=== PATIENT | female | born 1930 | race Caucasian/White ===

== ENCOUNTER 2017-07-16 19:07 | Inpatient (IN) | payer MEDICARE ==
[2017-07-16 19:56] LABS: #Basophils 0.1 thou/uL (0.0-0.2); #Lymphocytes 1.4 thou/uL (1.20-3.40); #Monocytes 0.7 thou/uL (0.11-0.59); #Neutrophils 6.7 thou/uL (1.40-6.50); %Basophils 0.9 % (0.0-1.0); %Eosinophils 0.4 % (0.0-10.0); %Lymphocytes 15.8 % (21.0-51.0); %Monocytes 8.1 % (0.0-10.0); %Neutrophils 74.8 % (42.0-75.0); Hemoglobin 11.4 g/dL (12.0-16.0); Mean Corpuscular HGB CONC 32.8 g/dL (32.0-36.0); Mean Corpuscular Hemoglobin 26.8 pg (27.0-31.0); Mean Corpuscular Volume 81.7 fl (81.0-99.0); Mean Platelet Volume 7.2 fL (7.4-10.4); Platelet Count 401 thou/uL (130-400); RBC Distribution Width 14.6 % (11.5-14.5); Red Blood Cell (RBC) Count 4.25 mill/uL (4.20-5.40)
[2017-07-16 20:03] LABS: INR-International Normal Ratio 1.4; PTT 26.9 SEC (22.9-36.1); Prothrombin Time 17.5 SEC (12.0-14.7)
[2017-07-16 20:18] LABS: ALT (SGPT) 13 U/L (8-55); AST (SGOT) 31 U/L (5-34); Albumin 3.3 g/dL (3.4-4.8); Alkaline Phosphatase 80 U/L (40-150); Anion Gap 14 mmol/L (10-20); BUN (Urea Nitrogen) 30 mg/dL (9.8-20.1); Bilirubin, Total 0.4 mg/dL (0.2-1.2); CK (CPK) 120 U/L (29-168); Calc. Creatinine Clearance 0 mL/min (70-130); Calcium 8.5 mg/dL (7.8-10.44); Carbon Dioxide 17 mmol/L (23-31); Chloride 100 mmol/L (98-107); Estimated GFR-MDRD 49; Globulin 4.1 g/dL (2.4-3.5); Glucose 110 mg/dL (83-110); Protein, Total 7.4 g/dL (6.0-8.3); Sodium 127 mmol/L (136-145)
[2017-07-16 20:22] LABS: CKMB 5.1 ng/mL (0-6.6); Troponin I 0.014 ng/mL (< 0.028)
--- NOTE | 2017-07-16 20:42 | RAD ---
PORTABLE CHEST: 07/16/17 HISTORY: Chest pain. New onset atrial fibrillation. Heart size is enlarged with atherosclerotic changes of the aorta. Lungs show some subsegmental atelec tatic changes in the basis. No focal infiltrates. IMPRESSION: Cardiomegaly with subsegmental atelectatic change in the lung bases. POS: GUNNER
[2017-07-16] MEDS ORDERED: Diltiazem HCl SR 60 mg Capsule PO SCH (21:00)
[2017-07-16] MEDS ORDERED: Enoxaparin Sodium 100 MG/ML SYRINGE ONE (21:10)
[2017-07-16] MEDS ORDERED: Diltiazem HCl 125 MG, Admixture Fee 1 EACH in Sodium Chloride 0.9% 100 ML IVPB SCH (21:45)
[2017-07-16 21:49] LABS: Magnesium 1.9 mg/dL (1.6-2.6); Phosphorus 3.5 mg/dL (2.3-4.7)
[2017-07-16] MEDS ORDERED: Furosemide 40 MG/4 ML VIAL ONE (22:03)
[2017-07-16 23:31] LABS: Troponin I 0.019 ng/mL (< 0.028)
[2017-07-17] MEDS ORDERED: Calcium Carbonate 500 MG ChewTAB PO PRN (01:56)
[2017-07-17] MEDS ORDERED: Nitroglycerin 0.4 MG TAB (25 Tab Bottle) PO PRN (01:56)
[2017-07-17] MEDS ORDERED: Milk Of Magnesia 30 ML UDCUP PO PRN (01:56)
[2017-07-17] MEDS ORDERED: Senokot 8.6 MG TAB PO PRN (01:56)
[2017-07-17] MEDS ORDERED: Acetaminophen 325 MG TAB PO PRN (01:56)
[2017-07-17] MEDS ORDERED: Bisacodyl 10 MG SUPP PR PRN (01:56)
[2017-07-17 02:04] LABS: Troponin I 0.032 ng/mL (< 0.028)
--- NOTE | 2017-07-17 02:51 | HP ---
DATE OF ADMISSION: 07/17/2017 Patient was seen and examined on 07/17/2017. PRIMARY CARE PHYSICIAN: Patient has not seen a physician for many years. CHIEF COMPLAINT: Palpitations and shortness of breath of four weeks' duration. HISTORY OF PRESENT ILLNESS: Patient is an 86-year-old female with hypertension and rheumatic fever a s a child presented to the emergency room with above complaints. Over the last 4 weeks or so, patient has gradual worsening shortness of breath along with bilateral l ower extremity leg swelling. Patient gets short of breath on mild exertion. The shortness of breath also gets worse on lying down. She denies recent immobilization, travel. She also had some cough, which was productive of clear whitish phlegm. She also has intermittent palpitations on and off over the last 3-4 weeks. She denies lightheadedness, chest pain, or syncope. No fever or chills reporte d. PAST MEDICAL HISTORY: 1. Rheumatic fever as a child. 2. Degenerative joint disease on daily Advil. 3. Hypertension currently not on any medications. PAST SURGICAL HISTORY: 1. Laparoscopic cholecystectomy. 2. D&C. 3. EGD. 4. Colonoscopy. ALLERGIES: Patient is allergic to ASPIRIN, DARVOCET, and IODINE. CURRENT HOME MEDICATIONS: Advil as needed. FAMILY HISTORY: Brother with gastric cancer. SOCIAL HISTORY: She currently lives at home with her family. Her grandson is the DPOA. She is FULL CODE. REVIEW OF SYSTEMS: The following complete review of systems was negative, unless otherwise mentioned in the HPI or below: Constitutional: Weight loss or gain, ability to conduct usual activities. Sk in: Rash, itching. Eyes: Double vision, pain. ENT/Mouth: Nose bleeding, neck stiffness, pain, te nderness. Cardiovascular: Palpitations, dyspnea on exertion, orthopnea. Respiratory: Shortness of breath, wheezing, cough, hemoptysis, fever, or night sweats. Gastrointestinal: Poor appetite, abdo meme pain, heartburn, nausea, vomiting, constipation, or diarrhea. Genitourinary: Urgency, frequen cy, dysuria, nocturia. Musculoskeletal: Pain, swelling. Neurologic/Psychiatric: Anxiety, depressi on. Allergy/Immunologic: Skin rash, bleeding tendency. PHYSICAL EXAMINATION: VITAL SIGNS: In the emergency room showed temperature 97.6, respirations 24, pulse rate of 104 with blood pressure 140/112 with O2 saturation 98% on room air. GENERAL: An 86-year-old female in mild respiratory distress, able to complete short phrases. HEENT: Atraumatic, normocephalic. Sclerae anicteric. Moist mucous membranes. No oral lesion. NECK: Supple. JVD elevated. No carotid bruit. LUNGS: Showed bibasilar rales with scattered rhonchi. No wheezing. Lungs were symmetrical. There is mild accessory muscle use. HEART: S1, S2 present. Irregularly irregular, 2/6 systolic murmur over the mitral area. No heaves or pulsation. ABDOMEN: Soft, nontender, bowel sounds present. EXTREMITIES: 3 to 4+ edema in bilateral lower extremities up to the thighs. No calf tenderness. SKIN: Warm and dry. LYMPH NODES: No palpable lymph nodes in the neck. PERIPHERAL VASCULAR: Radial pulses palpable bilaterally. MUSCULOSKELETAL: No joint swelling or tenderness. NEUROLOGIC: Grossly nonfocal, moves all four extremities. PSYCHIATRIC: Alert, awake, oriented x3. Normal affect. LABORATORY DATA AND X-RAY FINDINGS: EKG by my review showed atrial fibrillation with frequent PVCs. BNP was 1307. Troponins were negative. Sodium 127 with potassium 4, BUN 30, creatinine 1.07. CBC showed WBC 9 with hemoglobin 11.4. INR 1.4. Chest x-ray by my review showed pulmonary vascular zhao estion with cardiomegaly. IMPRESSION: 1. New-onset congestive heart failure with atrial fibrillation with rapid ventricular response. Pat ient will be monitored on the telemetry unit. We will start her on Cardizem drip along with diuretic s. We will monitor electrolytes on a daily basis. We will get echocardiogram. Cardiology will be c onsulted. Fluid restriction. We will keep her n.p.o. past midnight. 2. Hypertensive urgency. Patient has hypertensive heart disease on EKG. We will start her on low-d ose ANY inhibitor with beta blockers. Await echocardiogram. 3. Obesity with a BMI 32.6. 4. Hyponatremia secondary to congestive heart failure. 5. Mild protein-calorie malnutrition. 6. Chronic anemia, suspected nutritional. 7. Degenerative joint disease on daily no nonsteroidal anti-inflammatory drugs. Patient was advised to discontinue nonsteroidal anti-inflammatory drugs while on anticoagulation. Please note that brianne ent has been started on Lovenox. 8. Plan of care was discussed with the patient in detail. She stated understanding. Patient will require 2-3 days for stabilization. Cardiac rehabilitation will be consulted.
[2017-07-17] MEDS: Furosemide 20 MG/2 ML VIAL SLOW IVP SCH ×2 (05:34→15:40)
[2017-07-17 06:07] LABS: #Basophils 0.1 thou/uL (0.0-0.2); #Eosinphils 0.1 thou/uL (0.0-0.7); #Lymphocytes 1.7 thou/uL (1.20-3.40); #Neutrophils 6.6 thou/uL (1.40-6.50); %Basophils 0.6 % (0.0-1.0); %Eosinophils 0.6 % (0.0-10.0); %Lymphocytes 18.3 % (21.0-51.0); %Monocytes 10.2 % (0.0-10.0); %Neutrophils 70.3 % (42.0-75.0); Hemoglobin 11.1 g/dL (12.0-16.0); Mean Corpuscular HGB CONC 31.6 g/dL (32.0-36.0); Mean Corpuscular Hemoglobin 25.9 pg (27.0-31.0); Mean Platelet Volume 7.2 fL (7.4-10.4); Platelet Count 399 thou/uL (130-400); RBC Distribution Width 14.6 % (11.5-14.5); Red Blood Cell (RBC) Count 4.27 mill/uL (4.20-5.40); White Blood Cell (WBC) Count 9.3 thou/uL (4.8-10.8)
[2017-07-17 06:30] LABS: Albumin 3.4 g/dL (3.4-4.8); Anion Gap 12 mmol/L (10-20); BUN (Urea Nitrogen) 30 mg/dL (9.8-20.1); BUN/Creatinine Ratio 25.64; Calc. Creatinine Clearance 46 mL/min (70-130); Calcium 8.7 mg/dL (7.8-10.44); Carbon Dioxide 20 mmol/L (23-31); Cardiac Risk 3.1 (Less than 4.5); Chloride 101 mmol/L (98-107); Cholesterol 99 mg/dl (< 200 Desired); Estimated GFR-MDRD 44; Glucose 90 mg/dL (83-110); HDL Cholesterol 32 mg/dL (>60 Neg Risk); LDL Cholesterol, Calculated 55 mg/dL; Magnesium 1.7 mg/dL (1.6-2.6); Phosphorus 3.4 mg/dL (2.3-4.7); Potassium 3.5 mmol/L (3.5-5.1); Sodium 129 mmol/L (136-145); Triglycerides 61 mg/dL (Less than 150)
[2017-07-17] MEDS ORDERED: Lisinopril 2.5 MG TAB PO SCH ×2 (09:00→14:31)
[2017-07-17] MEDS ORDERED: Prevnar 13-Val Conj/PF 0.5 ML SYRINGE IM ONE (09:00)
[2017-07-17] MEDS: Docusate 100 MG CAP PO SCH ×2 (14:40→21:21)
[2017-07-17] MEDS: Famotidine 20 MG TAB PO SCH (14:40)
[2017-07-17] MEDS: Carvedilol 3.125 MG TAB PO SCH ×2 (14:40→21:21)
[2017-07-17] MEDS ORDERED: Lisinopril 5 MG TAB PO SCH (14:45)
--- NOTE | 2017-07-17 15:36 | CON ---
DATE OF CONSULTATION: 07/17/2017 INDICATION FOR CONSULTATION: An 86-year-old female with congestive heart failure symptoms, palpitati ons, new-onset atrial fibrillation. HISTORY OF PRESENT ILLNESS: This unfortunate 86-year-old female who has not seen a physician since t and has for the last couple weeks, palpitations, shortness of breath. She has also had some diarrhea. She has had some flu-like symptoms. She presented to the hospital as she became signific antly more and more weak and she has also complained of some chest discomfort or chest heaviness that she described which has actually been an ongoing problem since she had her flu-like symptoms. She h as had no previous cardiac workup. She did say that she has had a history of rheumatic fever as a ch ild and has had some palpitations since she was a child. She does have a history of hypertension but has no other significant complaints or problems such as diabetes, hypercholesterolemia, tobacco abus e. At this time, she denies any chest pain. She does have some significant edema. Her shortness of breath has improved. PAST MEDICAL HISTORY: Significant for rheumatic fever. She had degenerative joint disease. She has had a cholecystectomy. She has had a D&C. SOCIAL HISTORY: She is a . She has no alcohol or tobacco abuse. FAMILY HISTORY: One brother with gastric cancer, but no early heart disease. Her only medication at home was Advil on a p.r.n. basis. ALLERGIES: She is allergic to DARVOCET, IODINE, and ASPIRIN. REVIEW OF SYSTEMS: She complains of shortness of breath, fatigue, weakness, diarrhea, and the lower extremity edema. Otherwise, her 12-point review of systems is relatively unremarkable. PHYSICAL EXAMINATION: GENERAL: Reveals an elderly female. VITAL SIGNS: Blood pressure is 102/62 and then increased up to 152/97, heart rate is in the 60s in t erms of atrial fibrillation. Heart rate is 97. She is afebrile with temperature is 97.3, O2 saturat ion 97%. HEENT: Shows head to be normocephalic and atraumatic. Carotid pulses are present without any bruits . CHEST: She has some decreased breath sounds, but I did not hear any significant rales, rhonchi or wh eezing. CARDIOVASCULAR: Exam reveals an irregular rhythm. She has systolic murmur of the aortic area. She also has systolic murmur at the apex. There were no heaves or thrills noted. ABDOMEN: Obese with no significant masses. She does have some mild tenderness over the entire abdom inal area. EXTREMITIES: Showed 2+ to 3+ lower extremity edema. Pedal pulses are present. NEUROLOGIC: The patient appears to be intact. She has apparently normal strength, normal tone. SKIN: Warm and dry. Her EKG shows atrial fibrillation. Chest x-ray shows cardiomegaly. LABORATORY DATA: Shows a creatinine of 1.17, hemoglobin 11.1. Sodium is 129. Troponin I was 0.014 increased up to 0.032. Her BNP was 1307. INR is 1.4. LDL was 55. IMPRESSION AND PLAN: 1. Elderly female with atrial fibrillation, uncertain of the onset of this atrial fibrillation, but certainly could have been present for quite some time. Echocardiogram is being done at the time of m y seeing the patient, this does show ejection fraction to be about 50-55%. She has left atrial dilat ation. She had moderate to severe mitral and tricuspid valve regurgitation as well as mild aortic an d pulmonary valve regurgitation. She has aortic valve sclerosis. She also has mitral annular calcif ication. There was also thickening of the mitral valve leaflets, but there was no significant gradie nt noted across the mitral valve. She did have some mild aortic valve stenosis. I cannot determine whether or not she has diastolic dysfunction due to the atrial fibrillation. We will continue to mon itor her. I would agree with diuresis at this time. Due to the atrial fibrillation, she will need t o undergo some type of stress testing to determine whether or not she has underlying coronary artery disease; however, she is 86 years old. She has been unhappy with medical treatment since her several years ago and she may refuse to undergo any further medical management once she becomes stable. 2. Edema. This appears to be cardiac related. Once when she is diuresed, then she actually tells t hat she has been drinking, she would like to drink a lot of water and this may be just due to volume overload. 3. Hyponatremia, which also may be due to volume overload. She has not been taking diuretics. 4. Obesity. This will be dealt with by the primary care service. 5. Anemia. This may be a delusional problem. Otherwise, she may need further evaluation, but she i s not severely anemic. Hemoglobin is 11.1. We will need to continue to monitor this lady and furthe r evaluation we will continue after she has had some diuresis. I would advise her to undergo stress testing to rule out evidence for underlying ischemia. If she is agreeable to proceed with this and i f it is positive, we would suggest that she undergo cardiac catheterization. We discussed with the p atient to whether or not she will agree to these procedures. If not, if she adamantly refuses to und ergo cardiac catheterization then I am not sure how we pursue a stress testing at this time, but woul d treat her medically. She needs to be on diuretics as well as beta blockers at a low dose if she be comes too bradycardic, which appears that she has had some episodes of bradycardia since being in the hospital. She may be a candidate for pacemaker insertion. I will need to discuss this with the lynnette granados in order to proceed. Again, she has not been very agreeable to followups, medical management or physicians and their suggestions in the past. I would be more than happy to continue to follow the patient with you.
[2017-07-17] MEDS: Enoxaparin Sodium 80 MG/0.8 ML SYRINGE SC SCH ×2 (15:41→21:33)
[2017-07-18] MEDS ORDERED: Melatonin 3 MG TAB PO SCH (02:45)
[2017-07-18] MEDS ORDERED: Ondansetron ODT 4 MG TAB PO SCH (04:45)
[2017-07-18 05:06] LABS: #Basophils 0.1 thou/uL (0.0-0.2); #Eosinphils 0.1 thou/uL (0.0-0.7); #Lymphocytes 1.3 thou/uL (1.20-3.40); #Monocytes 1.1 thou/uL (0.11-0.59); #Neutrophils 7.2 thou/uL (1.40-6.50); %Basophils 0.7 % (0.0-1.0); %Eosinophils 0.8 % (0.0-10.0); %Lymphocytes 13.6 % (21.0-51.0); %Monocytes 11.1 % (0.0-10.0); %Neutrophils 73.8 % (42.0-75.0); Hemoglobin 10.4 g/dL (12.0-16.0); Mean Corpuscular HGB CONC 32.6 g/dL (32.0-36.0); Mean Corpuscular Hemoglobin 26.5 pg (27.0-31.0); Mean Corpuscular Volume 81.1 fl (81.0-99.0); Mean Platelet Volume 6.9 fL (7.4-10.4); Platelet Count 350 thou/uL (130-400); RBC Distribution Width 14.4 % (11.5-14.5); Red Blood Cell (RBC) Count 3.94 mill/uL (4.20-5.40); White Blood Cell (WBC) Count 9.7 thou/uL (4.8-10.8)
[2017-07-18 05:27] LABS: Albumin 2.9 g/dL (3.4-4.8); Anion Gap 8 mmol/L (10-20); BUN (Urea Nitrogen) 27 mg/dL (9.8-20.1); BUN/Creatinine Ratio 22.88; Calc. Creatinine Clearance 46 mL/min (70-130); Calcium 7.9 mg/dL (7.8-10.44); Carbon Dioxide 26 mmol/L (23-31); Chloride 101 mmol/L (98-107); Estimated GFR-MDRD 43; Glucose 92 mg/dL (83-110); Magnesium 1.8 mg/dL (1.6-2.6); Phosphorus 3.8 mg/dL (2.3-4.7); Potassium 3.2 mmol/L (3.5-5.1); Sodium 132 mmol/L (136-145)
[2017-07-18 05:28] LABS: Troponin I 0.028 ng/mL (< 0.028)
[2017-07-18] MEDS: Furosemide 20 MG/2 ML VIAL SLOW IVP SCH (06:46)
[2017-07-18] MEDS: Famotidine 20 MG TAB PO SCH (09:19)
[2017-07-18] MEDS: Lisinopril 5 MG TAB PO SCH (09:20)
[2017-07-18] MEDS: Docusate 100 MG CAP PO SCH ×2 (09:20→21:12)
[2017-07-18] MEDS: Carvedilol 3.125 MG TAB PO SCH ×2 (09:21→21:12)
[2017-07-18] MEDS: Enoxaparin Sodium 80 MG/0.8 ML SYRINGE SC SCH ×2 (09:21→21:13)
--- NOTE | 2017-07-18 13:05 | PDOC.PN ---
- Subjective Encounter Start Date: 07/18/17 Encounter Start Time: 12:45 Subjective: f/u for acute diastolic CHF and ?new-onset A-fib. Feels better overall but -: weak and unsteady on feet. Diuresing with IV Lasix with 3lb weight loss. -: EF 55%. - Objective Resuscitation Status: Resuscitation Status FULL:Full Resuscitation MAR Reviewed: Yes Vital Signs & Weight: Vital Signs (12 hours) Temp Pulse Resp BP Pulse Ox 07/18/17 11:31 97.4 F L 52 L 18 116/72 95 07/18/17 09:20 59 L 07/18/17 08:11 97.7 F 59 L 18 135/111 H 94 L 07/18/17 08:00 97.7 F 59 L 18 94 L 07/18/17 03:09 97.6 F 68 20 119/66 96 Weight Admit Weight 189 lb 3.2 oz Weight 186 lb 2 oz I&O: 07/17/17 07/18/17 07/19/17 06:59 06:59 06:59 Intake Total 39.1 Balance 39.1 Result Diagrams: 07/18/17 04:34 07/18/17 04:34 Additional Labs: Laboratory Tests 07/16/17 07/16/17 07/17/17 19:48 19:50 01:30 Hgb 11.4 L Sodium 127 L 129 L Creatinine 1.07 1.17 H Phosphorus Magnesium Triglycerides 61 Cholesterol 99 LDL Cholesterol, Calc 55 HDL Cholesterol 32 07/17/17 07/18/17 01:30 04:34 Hgb 11.1 L Sodium Creatinine Phosphorus 3.8 Magnesium 1.8 Triglycerides Cholesterol LDL Cholesterol, Calc HDL Cholesterol Radiology Reviewed by me: Yes (2D echo - EF 55%, diast dysfn, mod MR/TR, mod ) EKG Reviewed by me: Yes (Tele - A-fib in 70's) Phys Exam - Physical Examination Constitutional: NAD HEENT: PERRLA, moist MMs, sclera anicteric, oral pharynx no lesions Neck: no nodes, no JVD, supple bibasilar crackles, diminished in bases Respiratory: no wheezing, no rhonchi S1, S2 Cardiovascular: no significant murmur, no rub, irregular Gastrointestinal: soft, non-tender, no distention, positive bowel sounds + LE edema bilat Musculoskeletal: pulses present Neurological: non-focal, normal sensation, moves all 4 limbs Psychiatric: normal affect, A&O x 3 Skin: no rash, normal turgor, cap refill <2 seconds Dx/Plan (1) Acute diastolic CHF (congestive heart failure) Code(s): I50.31 - ACUTE DIASTOLIC (CONGESTIVE) HEART FAILURE Status: Acute Comment: Change Lasix 40mg IV q12h, monitor I/O's and daily weight (2) Atrial fibrillation with rapid ventricular response Code(s): I48.91 - UNSPECIFIED ATRIAL FIBRILLATION Status: Acute Comment: ? subacute process, currently rate-controlled on Coreg, continue Lovenox (3) Hypertensive urgency Code(s): I16.0 - HYPERTENSIVE URGENCY Status: Acute Comment: Resolved, monitor BP trend (4) Hyponatremia Code(s): E87.1 - HYPO-OSMOLALITY AND HYPONATREMIA Status: Acute Comment: Improved, likely due to volume overload secondary to CHF, continue to monitor trend (5) CKD (chronic kidney disease), stage III Code(s): N18.3 - CHRONIC KIDNEY DISEASE, STAGE 3 (MODERATE) Status: Chronic Comment: Serial creatinine, avoid nephrotoxic meds and contrast exposure - Plan PT/OT, social work case manager, out of bed/ambulate Stable currently -: Increase Lasix 40mg IV q12h -: Continue Lovenox 80mg sc q12h -: Continue Lisinopril 5mg daily -: AM lab: BMP, CBC * ? Stress test vs Heart cath
--- NOTE | 2017-07-18 14:59 | PDOC.CTH ---
Cardiology Progress Note - Subjective The pt seen and examined. No overnight events. HR was down to 30s early AM on 07/18/17. The pt was asymptomatic during the episode. - Objective Vital Signs Temp Pulse Pulse Pulse Resp BP BP 07/18/17 14:16 64 56 L 127/64 135/72 07/18/17 11:31 97.4 F L 52 L 18 07/18/17 09:20 59 L 07/18/17 08:11 97.7 F 59 L 18 07/18/17 08:00 97.7 F 59 L 18 07/18/17 03:09 97.6 F 68 20 BP Pulse Ox Pulse Ox Pulse Ox 07/18/17 14:16 96 94 L 07/18/17 11:31 116/72 95 07/18/17 09:20 07/18/17 08:11 135/111 H 94 L 07/18/17 08:00 94 L 07/18/17 03:09 119/66 96 Admit Weight 189 lb 3.2 oz Weight 186 lb 2 oz 07/17/17 07/18/17 07/19/17 06:59 06:59 06:59 Intake Total 39.1 Balance 39.1 - Physical Examination General/Neuro: alert & oriented x3 Neck: no JVD present Lungs: other: (diminished at bases) Heart: other: (irregular) Abdomen: soft Extremities: other: (3+ pitting edema in BLE) - Telemetry Telemetry Rhythm: Afib 33-59 - Labs Result Diagrams: 07/18/17 04:34 07/18/17 04:34 Troponin/CKMB CK-MB (CK-2) 5.1 ng/mL (0-6.6) 07/16/17 19:48 Troponin I 0.028 ng/mL (< 0.028) 07/18/17 04:34 - Assessment/Plan 1. Acute on chronic diastolic HF - Cont. 3 + pitting BLE edema. Lasix IV was increased from 20mg BID to 40mg BID from today. On BBlocker, ANY, and Lasix. 2. Afib with RVR - HR has been down to 33 early this AM. The pt was asymptomatic. Discussed about possible PM with the pt. On Coreg and Lovenox BID. 3. HTN - stable; cont. to monitor 4. Mod - stable; cont. to monitor 5. CKD stage 3 - stable; cont. to monitor 6. anemia - slowly declined. cont. to monitor 7. Hyponatremia - improving; 8. Obese - MAR reviewed * Echo on 07/17/17 showed EF 50-55%, grade I diastolic dysfunction, mod dilated LA, mod SIOMARA, mod-severe MR, mild AR, mod , mod-severe TR, and mild FL. * Once the pt is diuresed, then plan for stress test if the pt agrees. Review of Systems - Review of Systems Constitutional: reports: no symptoms reported EENTM: reports: no symptoms reported Respiratory: reports: no symptoms reported Cardiac (ROS): reports: no symptoms reported ABD/GI: reports: no symptoms reported : reports: no symptoms reported
[2017-07-18] MEDS: Furosemide 40 MG/4 ML VIAL SLOW IVP SCH (15:25)
[2017-07-19 06:10] LABS: Anion Gap 9 mmol/L (10-20); BUN (Urea Nitrogen) 27 mg/dL (9.8-20.1); Calc. Creatinine Clearance 48 mL/min (70-130); Calcium 7.9 mg/dL (7.8-10.44); Carbon Dioxide 28 mmol/L (23-31); Chloride 102 mmol/L (98-107); Estimated GFR-MDRD 47; Glucose 88 mg/dL (83-110); Potassium 3.1 mmol/L (3.5-5.1)
[2017-07-19 06:13] LABS: Band 2 % (5-11); Hemoglobin 10.5 g/dL (12.0-16.0); Lymphocytes 26 % (21-51); MDiff Complete? YES; Mean Corpuscular HGB CONC 32.3 g/dL (32.0-36.0); Mean Corpuscular Hemoglobin 26.5 pg (27.0-31.0); Mean Corpuscular Volume 82.1 fl (81.0-99.0); Monocytes 12 % (0-10); Neutrophil 60 % (42-75); Platelet Count 326 thou/uL (130-400); RBC Distribution Width 14.4 % (11.5-14.5); Red Blood Cell (RBC) Count 3.95 mill/uL (4.20-5.40); White Blood Cell (WBC) Count 7.6 thou/uL (4.8-10.8)
[2017-07-19 06:21] LABS: Sodium 136 mmol/L (136-145)
[2017-07-19] MEDS: Furosemide 40 MG/4 ML VIAL SLOW IVP SCH ×2 (06:36→14:25)
[2017-07-19] MEDS: Potassium Chloride 20 MEQ TAB PO SCH ×3 (08:51→17:21)
[2017-07-19] MEDS: Famotidine 20 MG TAB PO SCH (08:52)
[2017-07-19] MEDS: Docusate 100 MG CAP PO SCH ×2 (08:52→21:33)
[2017-07-19] MEDS: Lisinopril 5 MG TAB PO SCH (08:52)
[2017-07-19] MEDS: Enoxaparin Sodium 80 MG/0.8 ML SYRINGE SC SCH ×2 (08:52→21:32)
[2017-07-19] MEDS: Carvedilol 3.125 MG TAB PO SCH ×2 (08:52→21:33)
[2017-07-19] MEDS ORDERED: Magnesium Chloride 64 MG TAB PO SCH (10:00)
--- NOTE | 2017-07-19 15:03 | PDOC.CTH ---
Cardiology Progress Note - Subjective Awake, lying in bed, watching tv. Denies acute complaints. No chest pain, shortness of breath, nausea or vomiting. Getting up frequently to urinate, down 12 pounds since admission. No overnight events. - Objective Vital Signs Temp Pulse Resp BP BP Pulse Ox 07/19/17 11:58 97.8 F 70 18 124/58 L 97 07/19/17 08:52 56 L 137/68 07/19/17 08:00 98.1 F 56 L 18 94 L 07/19/17 07:55 98.1 F 56 L 18 137/68 94 L 07/19/17 04:00 76 18 128/79 Admit Weight 189 lb 3.2 oz Weight 174 lb 3 oz 07/18/17 07/19/17 07/20/17 06:59 06:59 06:59 Intake Total 39.1 960 Output Total 300 Balance 39.1 660 - Physical Examination General/Neuro: alert & oriented x3, NAD Neck: no JVD present Lungs: CTA, unlabored respirations Heart: other: (Irregularly irregular) Abdomen: NT/ND Extremities: + edema B (Moderate BLE edema) - Labs Result Diagrams: 07/19/17 05:14 07/19/17 05:14 Troponin/CKMB CK-MB (CK-2) 5.1 ng/mL (0-6.6) 07/16/17 19:48 Troponin I 0.028 ng/mL (< 0.028) 07/18/17 04:34 - Assessment/Plan 1. Acute on chronic diastolic HF - EF 50-55%, grade I diastolic dysfunction, mod dilated LA, mod SIOMARA, moderate BLE edema. 12 pound weight loss since admission, volume status improving. Continue carvedilol, ACEi, furosemide as ordered. Will need stress test once euvolemic. 2. Afib with RVR-rate controlled, enoxaparin BID 3. HTN - stable, titrate antihypertensives as tolerated 4. Mod - stable 5. CKD stage 3 - stable 6. anemia -H&H stable 7. Hyponatremia -improved, Na+ 136 today
[2017-07-19] MEDS: Magnesium Chloride 64 MG TAB PO SCH (21:37)
--- NOTE | 2017-07-19 22:26 | PDOC.PN ---
- Subjective Encounter Start Date: 07/19/17 Encounter Start Time: 18:00 Patient seen and examined for New CHF/Afib with RVR. SOB/Leg swelling improving. No CP/SOB. No overnight events - Objective Resuscitation Status: Resuscitation Status FULL:Full Resuscitation MAR Reviewed: Yes Vital Signs & Weight: Vital Signs (12 hours) Temp Pulse Resp BP Pulse Ox 07/19/17 15:56 98 F 84 16 148/78 H 94 L 07/19/17 11:58 97.8 F 70 18 124/58 L 97 Weight Admit Weight 189 lb 3.2 oz Weight 174 lb 3 oz I&O: 07/18/17 07/19/17 07/20/17 06:59 06:59 06:59 Intake Total 39.1 960 580 Output Total 300 Balance 39.1 660 580 Result Diagrams: 07/19/17 05:14 07/20/17 04:42 EKG Reviewed by me: Yes (Tele Afib) Phys Exam - Physical Examination Constitutional: NAD Respiratory: no wheezing, no rhonchi Cardiovascular: no rub, irregular Gastrointestinal: soft, non-tender, positive bowel sounds Musculoskeletal: edema present (1+) Neurological: non-focal, moves all 4 limbs Psychiatric: A&O x 3 Dx/Plan (1) Acute diastolic CHF (congestive heart failure) Code(s): I50.31 - ACUTE DIASTOLIC (CONGESTIVE) HEART FAILURE Status: Acute Plan: Cont IV diuretics, ACEI, BB (2) Hypokalemia Code(s): E87.6 - HYPOKALEMIA Status: Acute Plan: Will replace (3) Atrial fibrillation with rapid ventricular response Code(s): I48.91 - UNSPECIFIED ATRIAL FIBRILLATION Status: Acute Plan: Rate controlled with beta blockers. Cont Anticoag. (4) Hypertensive urgency Code(s): I16.0 - HYPERTENSIVE URGENCY Status: Acute Plan: Cont current anti HTN (5) CKD (chronic kidney disease), stage III Code(s): N18.3 - CHRONIC KIDNEY DISEASE, STAGE 3 (MODERATE) Status: Chronic (6) Hyponatremia Code(s): E87.1 - HYPO-OSMOLALITY AND HYPONATREMIA Status: Resolved - Plan DVT proph w/lovenox, DVT proph w/SCDs Review of Systems - Review of Systems Respiratory: negative: Cough, Dry, Shortness of Breath, Hemoptysis, SOB with Excertion, Pleuritic Pain, Sputum, Wheezing Cardiovascular: negative: chest pain, palpitations, orthopnea, paroxysmal nocturnal dyspnea, edema, light headedness, other - Medications/Allergies Allergies/Adverse Reactions: Allergies Allergy/AdvReac Type Severity Reaction Status Date / Time aspirin Allergy Verified 07/17/17 00:39 barium iodide Allergy Verified 07/17/17 17:14 propoxyphene [From Darvon] Allergy Verified 07/17/17 00:39 Medications: Current Medications Acetaminophen (Tylenol) 650 mg PO Q4H PRN PRN Reason: Headache/Fever or Pain Bisacodyl (Dulcolax) 10 mg HI Q24H PRN PRN Reason: Constipation Calcium Carbonate (Tums) 1,000 mg PO Q4H PRN PRN Reason: Heartburn or Indigestion Carvedilol (Coreg) 3.125 mg PO BID COUNTS INCLUDE 234 BEDS AT THE [facility] Last Admin: 07/19/17 21:33 Dose: 3.125 mg Docusate Sodium (Colace) 100 mg PO BID COUNTS INCLUDE 234 BEDS AT THE [facility] Last Admin: 07/19/17 21:33 Dose: 100 mg Enoxaparin Sodium (Lovenox) 80 mg SC 0900,2100 COUNTS INCLUDE 234 BEDS AT THE [facility] Last Admin: 07/19/17 21:32 Dose: 80 mg Famotidine (Pepcid) 20 mg PO DAILY COUNTS INCLUDE 234 BEDS AT THE [facility] Last Admin: 07/19/17 08:52 Dose: 20 mg Furosemide (Lasix) 40 mg SLOW IVP 0600,1400 COUNTS INCLUDE 234 BEDS AT THE [facility] Last Admin: 07/19/17 14:25 Dose: 40 mg Lisinopril (Zestril) 5 mg PO DAILY COUNTS INCLUDE 234 BEDS AT THE [facility] Last Admin: 07/19/17 08:52 Dose: 5 mg Magnesium Chloride (Slow-Mag) 64 mg PO BID COUNTS INCLUDE 234 BEDS AT THE [facility] Last Admin: 07/19/17 21:37 Dose: 64 mg Magnesium Hydroxide (Milk Of Magnesium) 30 ml PO DAILYPRN PRN PRN Reason: Constipation Nitroglycerin (Nitrostat) 0.4 mg PO Q5MIN PRN PRN Reason: Chest Pain Senna (Senokot) 2 tab PO HSPRN PRN PRN Reason: Constipation Sodium Chloride (Flush - Normal Saline) 10 ml IVF PRN PRN PRN Reason: Saline Flush Last Admin: 07/19/17 21:38 Dose: 10 ml
[2017-07-20 06:08] LABS: Anion Gap 11 mmol/L (10-20); BUN (Urea Nitrogen) 28 mg/dL (9.8-20.1); Calc. Creatinine Clearance 48 mL/min (70-130); Calcium 8.3 mg/dL (7.8-10.44); Carbon Dioxide 30 mmol/L (23-31); Chloride 100 mmol/L (98-107); Estimated GFR-MDRD 50; Glucose 87 mg/dL (83-110); Magnesium 1.9 mg/dL (1.6-2.6); Potassium 3.8 mmol/L (3.5-5.1); Sodium 137 mmol/L (136-145)
[2017-07-20] MEDS: Furosemide 40 MG/4 ML VIAL SLOW IVP SCH ×2 (06:42→14:26)
[2017-07-20] MEDS: Carvedilol 3.125 MG TAB PO SCH ×2 (09:31→21:17)
[2017-07-20] MEDS: Famotidine 20 MG TAB PO SCH (09:31)
[2017-07-20] MEDS: Docusate 100 MG CAP PO SCH ×2 (09:31→09:33)
[2017-07-20] MEDS: Enoxaparin Sodium 80 MG/0.8 ML SYRINGE SC SCH ×2 (09:31→21:21)
[2017-07-20] MEDS: Lisinopril 5 MG TAB PO SCH (09:31)
[2017-07-20] MEDS: Magnesium Chloride 64 MG TAB PO SCH (09:54)
[2017-07-20 12:40] LABS: Bilirubin Negative (Negative); Blood, Urine Large (Negative); Clarity TURBID (Clear); Glucose, Urine (Dipstick) Negative (Negative); Leukocyte Large (Negative); Nitrite Negative (Negative); Protein, Urine (Dipstick) 30 mg/dL (Neg-Trace); Specific Gravity, Urine 1.009 (1.002-1.036); Urobilinogen 0.2 mg/dL (0.2-1.0)
[2017-07-20 12:42] LABS: Hyaline Casts/LPF 0-3 HYALINE CAST LPF (0-3 Hyaline); Pathc Cast-AUWi Flag 0.32 (0-2.49); Squamous Epithelial 0-3 HPF (0-3)
[2017-07-20 12:44] LABS: Yeast-AUWi Flag 283.4 (0-25.0)
[2017-07-20 12:50] LABS: Bacteria/HPF Rare-Few HPF (None Seen); RBC/HPF GREATER THAN 50-TNTC HPF (0-3); Yeast-All Forms None Seen HPF (None Seen)
--- NOTE | 2017-07-20 14:08 | PDOC.CTH ---
Cardiology Progress Note - Objective Vital Signs Temp Pulse Resp BP Pulse Ox 07/20/17 11:55 99.0 F 85 16 140/81 96 07/20/17 09:57 93 138/95 H 07/20/17 08:00 97.4 F L 93 14 07/20/17 07:46 97.4 F L 81 14 179/102 H 95 07/20/17 05:45 97.5 F L 89 18 120/85 94 L 07/20/17 05:32 93 L Admit Weight 189 lb 3.2 oz Weight 171 lb 1 oz 07/19/17 07/20/17 07/21/17 06:59 06:59 06:59 Intake Total 960 700 Output Total 300 100 520 Balance 660 600 -520 - Labs Result Diagrams: 07/19/17 05:14 07/20/17 04:42 Troponin/CKMB CK-MB (CK-2) 5.1 ng/mL (0-6.6) 07/16/17 19:48 Troponin I 0.028 ng/mL (< 0.028) 07/18/17 04:34 - Assessment/Plan 1. Acute on chronic diastolic HF - EF 50-55%, grade I diastolic dysfunction, mod dilated LA, mod SIOMARA, moderate BLE edema. 12 pound weight loss since admission, volume status improving. Continue carvedilol, ACEi, furosemide as ordered. Will need stress test once euvolemic. 2. Afib with RVR-rate controlled, enoxaparin BID 3. HTN - stable, titrate antihypertensives as tolerated 4. Mod - stable 5. CKD stage 3 - stable 6. anemia -H&H stable 7. Hyponatremia -improved, Na+ 136 today
--- NOTE | 2017-07-20 14:15 | PRG ---
DATE OF SERVICE: 07/20/2017 SUBJECTIVE: Ms. Mariee is feeling "washed out." No chest pain or pressure. OBJECTIVE: VITAL SIGNS: Blood pressure 140/80, pulse 85 and irregular. LUNGS: Clear. CARDIAC: Irregularly irregular. ABDOMEN: Soft, nontender. EXTREMITIES: No edema. ASSESSMENT: 1. Atrial fibrillation. 2. Mitral regurgitation. 3. Congestive heart failure. PLAN: Stress test has been ordered per Dr. Reina notes test discussed with the patient and family.
[2017-07-20] MEDS: cefTRIAXone\\ROCEPHIN 1 GM in Sodium Chloride 0.9% 100 ML IVPB SCH (14:27)
[2017-07-20] MEDS: Potassium Chloride 20 MEQ TAB PO SCH (17:45)
[2017-07-20] MEDS ORDERED: hydrALAZINE 20 MG/ML VIAL SLOW IVP SCH (21:15)
[2017-07-20] MEDS ORDERED: Ondansetron ODT 4 MG TAB SL SCH (21:15)
[2017-07-20] MEDS: Melatonin 3 MG TAB PO PRN (21:17)
--- NOTE | 2017-07-20 22:32 | PDOC.PN ---
- Subjective Encounter Start Date: 07/20/17 Encounter Start Time: 10:00 Patient seen and examined for CHF/Afib. SOB improving. Some urine discoloration. No overnight events - Objective Resuscitation Status: Resuscitation Status FULL:Full Resuscitation MAR Reviewed: Yes Vital Signs & Weight: Vital Signs (12 hours) Temp Pulse Resp BP Pulse Ox 07/20/17 21:19 65 07/20/17 16:00 97.5 F L 65 16 185/94 H 94 L 07/20/17 11:55 99.0 F 85 16 140/81 96 Weight Admit Weight 189 lb 3.2 oz Weight 171 lb 1 oz I&O: 07/19/17 07/20/17 07/21/17 06:59 06:59 06:59 Intake Total 960 700 980 Output Total 300 100 920 Balance 660 600 60 Result Diagrams: 07/19/17 05:14 07/20/17 04:42 EKG Reviewed by me: Yes (Tele Afib) Phys Exam - Physical Examination Constitutional: NAD Respiratory: no wheezing, no rhonchi Cardiovascular: no rub, irregular Gastrointestinal: soft, non-tender, positive bowel sounds Musculoskeletal: no edema Neurological: moves all 4 limbs Dx/Plan (1) Acute diastolic CHF (congestive heart failure) Code(s): I50.31 - ACUTE DIASTOLIC (CONGESTIVE) HEART FAILURE Status: Acute Comment: diuresing well (2) Hypokalemia Code(s): E87.6 - HYPOKALEMIA Status: Acute (3) Atrial fibrillation with rapid ventricular response Code(s): I48.91 - UNSPECIFIED ATRIAL FIBRILLATION Status: Acute Comment: Rate controlled. (4) Hypertensive urgency Code(s): I16.0 - HYPERTENSIVE URGENCY Status: Acute (5) CKD (chronic kidney disease), stage III Code(s): N18.3 - CHRONIC KIDNEY DISEASE, STAGE 3 (MODERATE) Status: Chronic (6) UTI (urinary tract infection) Status: Acute (7) Hyponatremia Code(s): E87.1 - HYPO-OSMOLALITY AND HYPONATREMIA Status: Resolved - Plan DVT proph w/lovenox Treat UTI -: Cont current meds as below -: Stress test -: Cont diuretics -: AM labs Review of Systems - Review of Systems Respiratory: negative: Cough, Dry, Shortness of Breath, Hemoptysis, SOB with Excertion, Pleuritic Pain, Sputum, Wheezing Cardiovascular: negative: chest pain, palpitations, orthopnea, paroxysmal nocturnal dyspnea, edema, light headedness, other - Medications/Allergies Allergies/Adverse Reactions: Allergies Allergy/AdvReac Type Severity Reaction Status Date / Time aspirin Allergy Verified 07/17/17 00:39 barium iodide Allergy Verified 07/17/17 17:14 propoxyphene [From Darvon] Allergy Verified 07/17/17 00:39 Medications: Current Medications Acetaminophen (Tylenol) 650 mg PO Q4H PRN PRN Reason: Headache/Fever or Pain Bisacodyl (Dulcolax) 10 mg [place] Q24H PRN PRN Reason: Constipation Calcium Carbonate (Tums) 1,000 mg PO Q4H PRN PRN Reason: Heartburn or Indigestion Last Admin: 07/20/17 06:37 Dose: 1,000 mg Carvedilol (Coreg) 3.125 mg PO BID [facility] Last Admin: 07/20/17 21:17 Dose: 3.125 mg Docusate Sodium (Colace) 100 mg PO BID [facility] Last Admin: 07/20/17 09:33 Dose: Not Given Enoxaparin Sodium (Lovenox) 80 mg SC 0900,2100 [facility] Last Admin: 07/20/17 21:21 Dose: 80 mg Famotidine (Pepcid) 20 mg PO DAILY [facility] Last Admin: 07/20/17 09:31 Dose: 20 mg Furosemide (Lasix) 40 mg PO DAILY-[facility] Hydralazine HCl (Apresoline) 10 mg SLOW IVP NOW [facility] Stop: 07/20/17 23:15 Last Admin: 07/20/17 21:19 Dose: 10 mg Ceftriaxone Sodium 1 gm/ (Sodium Chloride) 100 mls @ 200 mls/hr IVPB Q24HR [facility] Last Admin: 07/20/17 14:27 Dose: 100 mls Lisinopril (Zestril) 5 mg PO DAILY [facility] Last Admin: 07/20/17 09:31 Dose: 5 mg Magnesium Chloride (Slow-Mag) 64 mg PO BID [facility] Last Admin: 07/20/17 09:54 Dose: 64 mg Magnesium Hydroxide (Milk Of Magnesium) 30 ml PO DAILYPRN PRN PRN Reason: Constipation Melatonin (Melatonin) 3 mg PO HS PRN PRN Reason: Insomnia Last Admin: 07/20/17 21:17 Dose: 3 mg Nitroglycerin (Nitrostat) 0.4 mg PO Q5MIN PRN PRN Reason: Chest Pain Last Admin: 07/20/17 21:15 Dose: 0.4 mg Ondansetron HCl (Zofran Odt) 4 mg SL [facility] Stop: 07/20/17 23:15 Last Admin: 07/20/17 21:24 Dose: 4 mg Potassium Chloride (K-Dur) 20 meq PO BID-[facility] Last Admin: 07/20/17 17:45 Dose: 20 meq Senna (Senokot) 2 tab PO HSPRN PRN PRN Reason: Constipation Sodium Chloride (Flush - Normal Saline) 10 ml IVF PRN PRN PRN Reason: Saline Flush Last Admin: 07/20/17 06:42 Dose: 10 ml
[2017-07-21 05:31] LABS: #Basophils 0.1 thou/uL (0.0-0.2); #Monocytes 0.8 thou/uL (0.11-0.59); #Neutrophils 3.6 thou/uL (1.40-6.50); %Basophils 0.9 % (0.0-1.0); %Eosinophils 0.7 % (0.0-10.0); %Lymphocytes 30.6 % (21.0-51.0); %Monocytes 12.3 % (0.0-10.0); %Neutrophils 55.6 % (42.0-75.0); Hemoglobin 11.5 g/dL (12.0-16.0); Mean Corpuscular HGB CONC 32.7 g/dL (32.0-36.0); Mean Corpuscular Volume 82.4 fl (81.0-99.0); Mean Platelet Volume 6.9 fL (7.4-10.4); Platelet Count 353 thou/uL (130-400); RBC Distribution Width 14.3 % (11.5-14.5); Red Blood Cell (RBC) Count 4.28 mill/uL (4.20-5.40); White Blood Cell (WBC) Count 6.5 thou/uL (4.8-10.8)
[2017-07-21 05:50] LABS: Anion Gap 13 mmol/L (10-20); BUN (Urea Nitrogen) 25 mg/dL (9.8-20.1); Calc. Creatinine Clearance 52 mL/min (70-130); Calcium 8.8 mg/dL (7.8-10.44); Carbon Dioxide 28 mmol/L (23-31); Chloride 97 mmol/L (98-107); Estimated GFR-MDRD 56; Glucose 95 mg/dL (83-110); Magnesium 1.9 mg/dL (1.6-2.6); Potassium 3.5 mmol/L (3.5-5.1); Sodium 134 mmol/L (136-145)
[2017-07-21] MEDS: Magnesium Chloride 64 MG TAB PO SCH ×3 (08:00→20:56)
[2017-07-21] MEDS: Docusate 100 MG CAP PO SCH ×3 (08:00→20:56)
[2017-07-21] MEDS ORDERED: ADENOSINE 60 MG/20 ML VIAL ONE (11:07)
[2017-07-21] MEDS: Enoxaparin Sodium 80 MG/0.8 ML SYRINGE SC SCH (11:52)
[2017-07-21] MEDS: Famotidine 20 MG TAB PO SCH (12:40)
[2017-07-21] MEDS: Potassium Chloride 20 MEQ TAB PO SCH ×2 (12:40→19:13)
[2017-07-21] MEDS: Carvedilol 3.125 MG TAB PO SCH ×2 (12:41→20:56)
[2017-07-21] MEDS: Lisinopril 5 MG TAB PO SCH (12:41)
[2017-07-21] MEDS: Furosemide 40 MG TAB PO SCH (12:43)
[2017-07-21] MEDS: cefTRIAXone\\ROCEPHIN 1 GM in Sodium Chloride 0.9% 100 ML IVPB SCH (12:44)
--- NOTE | 2017-07-21 14:21 | NM ---
MYOCARDIAL PERFUSION EVALUATION: INDICATION: History of chest pain. RADIOPHARMACEUTICAL: 31 mCi technetium-99m sestamibi IV with stress and 27 mCi technetium-99m sestamibi with rest. COMPARISON: None. FINDINGS: When comparing the rest and stress images, no reversible myocardial perfusion defect is evident. Ther e is a mild size region of moderate reduced activity involving the mid to apical inferior and inferol ateral wall of the left ventricle, likely related to diaphragmatic attenuation. There is normal wall thickening seen within this region. There is left ventricular dilatation. There is diminished LVEF of 43%. IMPRESSION: Probably normal myocardial perfusion evaluation. 1. No definite scintigraphic evidence to suggest reversible myocardial ischemia. 2. Fixed defect involving the mid to apical inferior and inferolateral left ventricular wall, likely related to diaphragmatic attenuation. 3. Mild left ventricular dilatation with diminished LVEF estimated at 43%. POS: [facility]
--- NOTE | 2017-07-21 14:31 | ULT ---
RENAL ULTRASOUND: History: Hematuria. Comparison: None. FINDINGS: The right kidney measures 9.9 x 4.5 x 4.3 cm. There is a 3.8 cm cyst involving the inferior pole of t he right kidney. The left kidney measures 9.9 x 4.9 x 4.5 cm. There is a suspected parapelvic cyst involving the infer ior mid left kidney measuring 2.9 cm. Pre void bladder volume is 233 cc. There are bilateral ureteral jets. IMPRESSION: 1. No tacho hydronephrosis. 2. Right renal cyst. 3. Left peripelvic cyst. POS: [facility]
--- NOTE | 2017-07-21 14:32 | ULT ---
TRANSABDOMINAL EVALUATION OF THE PELVIS: INDICATION: History of vaginal bleeding. TECHNIQUE: Bass scale ultrasound images were submitted of the transabdominal pelvic ultrasound exam. The patien t refused a transvaginal exam. FINDINGS: Overlying bowel gas heavily limits image detail. The bladder was partially decompressed. The uterus and adnexa were not well seen. IMPRESSION: Limited examination of the pelvis via transabdominal approach due to overlying bowel gas and limited acoustic window from a decompressed bladder. The patient declined the transvaginal examination. POS: [facility]
--- NOTE | 2017-07-21 14:41 | PDOC.CTH ---
<Aundrea Waters - Last Filed: 07/21/17 14:42> Cardiology Progress Note - Subjective The pt seen and examined. No overnight events. No cardiac complaints. She feels generalized weakness. Family is at bedside and all questions were answered. - Objective Vital Signs Temp Pulse Resp BP Pulse Ox 07/21/17 12:39 96.3 F L 85 16 131/94 H 07/21/17 08:00 97.8 F 85 16 181/86 H 96 07/21/17 04:00 97.7 F 97 20 131/102 H 94 L Admit Weight 189 lb 3.2 oz Weight 165 lb 1 oz 07/20/17 07/21/17 07/22/17 06:59 06:59 06:59 Intake Total 700 1010 Output Total 100 1320 600 Balance 600 -310 -600 - Physical Examination General/Neuro: alert & oriented x3 Neck: no JVD present Lungs: CTA Heart: other: (irregular) Abdomen: soft Extremities: other: (1+ pitting BLE edema) - Telemetry Telemetry Rhythm: AFib 70-80s - Labs Result Diagrams: 07/21/17 05:19 07/21/17 05:19 Troponin/CKMB CK-MB (CK-2) 5.1 ng/mL (0-6.6) 07/16/17 19:48 Troponin I 0.028 ng/mL (< 0.028) 07/18/17 04:34 - Assessment/Plan 1. Acute on chronic diastolic HF - Stable with Lasix 40mg PO daily. Trace BLE edema. On BBlocker, ANY, and Lasix. 2. Afib with RVR - Hx of Bradycardia with HR down to 33 on 07/18/17. Stable HR with Afib With HR 70-80s since 07/19/17. Stress test was done today and the result is pending at this time. Lovenox is on hold due to S/p Acute genital bleeding. 3. HTN - stable; cont. to monitor 4. Mod - stable; cont. to monitor 5. CKD stage 3 - stable; cont. to monitor 6. anemia - Hgb 11.5 today which was 10.5 on 07/19/17. Cont. to monitor 7. Hyponatremia - improving; 8. Obese - MAR reviewed * Echo on 07/17/17 showed EF 50-55%, grade I diastolic dysfunction, mod dilated LA, mod SIOMARA, mod-severe MR, mild AR, mod , mod-severe TR, and mild [place]. * Stress test, Pelvic and renal U/S were done today and the result is pending at this time. Review of Systems - Review of Systems Constitutional: reports: see HPI EENTM: reports: no symptoms reported Respiratory: reports: no symptoms reported Cardiac (ROS): reports: no symptoms reported ABD/GI: reports: no symptoms reported : reports: no symptoms reported <Saadia Reina - Last Filed: 07/21/17 15:44> Cardiology Progress Note - Objective Vital Signs Temp Pulse Resp BP Pulse Ox 07/21/17 12:39 96.3 F L 85 16 131/94 H 07/21/17 08:00 97.8 F 85 16 181/86 H 96 07/21/17 04:00 97.7 F 97 20 131/102 H 94 L Admit Weight 189 lb 3.2 oz Weight 165 lb 1 oz 07/20/17 07/21/17 07/22/17 06:59 06:59 06:59 Intake Total 700 1010 Output Total 100 1320 600 Balance 600 -310 -600 - Labs Result Diagrams: 07/21/17 05:19 07/21/17 05:19 Troponin/CKMB CK-MB (CK-2) 5.1 ng/mL (0-6.6) 07/16/17 19:48 Troponin I 0.028 ng/mL (< 0.028) 07/18/17 04:34 - Assessment/Plan Pt. seen and eval. I agree with the a/P by the [facility] ATTENDANT. The stress test does not indicate reversible ischemia. Likely best to continue with ASA for Afib. if tolerated with the vaginal bleeding. She refused the vaginal ultrasound. The HR is under reasonable controlNo further significant braducardia and no tachycardia. No pacemaker indicated at this time.
[2017-07-21] MEDS: Melatonin 3 MG TAB PO PRN (20:56)
--- NOTE | 2017-07-21 22:11 | PDOC.PN ---
- Subjective Encounter Start Date: 07/21/17 Encounter Start Time: 18:00 Patient seen and examined for CHF/Afib. No new complaints. Overnight events noted. - Objective Resuscitation Status: Resuscitation Status FULL:Full Resuscitation MAR Reviewed: Yes Vital Signs & Weight: Vital Signs (12 hours) Temp Pulse Resp BP Pulse Ox 07/21/17 20:00 97.6 F 76 16 152/90 H 97 07/21/17 15:53 98.2 F 76 18 159/100 H 93 L 07/21/17 12:39 96.3 F L 85 16 131/94 H Weight Admit Weight 189 lb 3.2 oz Weight 165 lb 1 oz I&O: 07/20/17 07/21/17 07/22/17 06:59 06:59 06:59 Intake Total 700 1010 Output Total 100 1320 800 Balance 600 -310 -800 Result Diagrams: 07/22/17 05:25 07/22/17 05:25 EKG Reviewed by me: Yes (Tele Afib) Phys Exam - Physical Examination Constitutional: NAD Respiratory: no wheezing, no rhonchi Cardiovascular: no rub, irregular Gastrointestinal: soft, positive bowel sounds Musculoskeletal: edema present Neurological: moves all 4 limbs Dx/Plan (1) Acute diastolic CHF (congestive heart failure) Code(s): I50.31 - ACUTE DIASTOLIC (CONGESTIVE) HEART FAILURE Status: Acute Comment: diuresing well (2) Hypokalemia Code(s): E87.6 - HYPOKALEMIA Status: Acute (3) Atrial fibrillation with rapid ventricular response Code(s): I48.91 - UNSPECIFIED ATRIAL FIBRILLATION Status: Acute Comment: Rate controlled. (4) Hypertensive urgency Code(s): I16.0 - HYPERTENSIVE URGENCY Status: Acute (5) UTI (urinary tract infection) Status: Acute (6) Vagina bleeding Code(s): N93.9 - ABNORMAL UTERINE AND VAGINAL BLEEDING, UNSPECIFIED Status: Acute (7) CKD (chronic kidney disease), stage III Code(s): N18.3 - CHRONIC KIDNEY DISEASE, STAGE 3 (MODERATE) Status: Chronic - Plan continue antibiotics, DVT proph w/SCDs Complete Pelvic ultrasound in AM, Consult Database Report Writer in AM -: Lovenox dced due to Vaginal bleeding -: Cont Lasix PO -: Cont current meds as below -: Stress test neg Review of Systems - Review of Systems Respiratory: negative: Cough, Dry, Shortness of Breath, Hemoptysis, SOB with Excertion, Pleuritic Pain, Sputum, Wheezing Cardiovascular: negative: chest pain, palpitations, orthopnea, paroxysmal nocturnal dyspnea, edema, light headedness, other - Medications/Allergies Allergies/Adverse Reactions: Allergies Allergy/AdvReac Type Severity Reaction Status Date / Time aspirin Allergy Verified 07/17/17 00:39 barium iodide Allergy Verified 07/17/17 17:14 propoxyphene [From Darvon] Allergy Verified 07/17/17 00:39 Medications: Current Medications Acetaminophen (Tylenol) 650 mg PO Q4H PRN PRN Reason: Headache/Fever or Pain Bisacodyl (Dulcolax) 10 mg [place] Q24H PRN PRN Reason: Constipation Calcium Carbonate (Tums) 1,000 mg PO Q4H PRN PRN Reason: Heartburn or Indigestion Last Admin: 07/20/17 06:37 Dose: 1,000 mg Carvedilol (Coreg) 3.125 mg PO BID [facility] Last Admin: 07/21/17 20:56 Dose: 3.125 mg Docusate Sodium (Colace) 100 mg PO BID [facility] Last Admin: 07/21/17 20:56 Dose: 100 mg Famotidine (Pepcid) 20 mg PO DAILY [facility] Last Admin: 07/21/17 12:40 Dose: 20 mg Furosemide (Lasix) 40 mg PO DAILY-[facility] Last Admin: 07/21/17 12:43 Dose: 40 mg Ceftriaxone Sodium 1 gm/ (Sodium Chloride) 100 mls @ 200 mls/hr IVPB Q24HR [facility] Last Admin: 07/21/17 12:44 Dose: 100 mls Lisinopril (Zestril) 5 mg PO DAILY [facility] Last Admin: 07/21/17 12:41 Dose: 5 mg Magnesium Chloride (Slow-Mag) 64 mg PO BID [facility] Last Admin: 07/21/17 20:56 Dose: 64 mg Magnesium Hydroxide (Milk Of Magnesium) 30 ml PO DAILYPRN PRN PRN Reason: Constipation Melatonin (Melatonin) 3 mg PO HS PRN PRN Reason: Insomnia Last Admin: 07/21/17 20:56 Dose: 3 mg Nitroglycerin (Nitrostat) 0.4 mg PO Q5MIN PRN PRN Reason: Chest Pain Last Admin: 07/20/17 21:15 Dose: 0.4 mg Potassium Chloride (K-Dur) 20 meq PO BID-[facility] Last Admin: 07/21/17 19:13 Dose: 20 meq Senna (Senokot) 2 tab PO HSPRN PRN PRN Reason: Constipation Sodium Chloride (Flush - Normal Saline) 10 ml IVF PRN PRN PRN Reason: Saline Flush Last Admin: 07/21/17 12:44 Dose: 10 ml
[2017-07-22 05:59] LABS: Hemoglobin 11.2 g/dL (12.0-16.0)
[2017-07-22 06:20] LABS: Anion Gap 11 mmol/L (10-20); BUN (Urea Nitrogen) 25 mg/dL (9.8-20.1); Calc. Creatinine Clearance 52 mL/min (70-130); Calcium 8.6 mg/dL (7.8-10.44); Carbon Dioxide 29 mmol/L (23-31); Chloride 99 mmol/L (98-107); Estimated GFR-MDRD 58; Glucose 100 mg/dL (83-110); Magnesium 1.9 mg/dL (1.6-2.6); Potassium 4.1 mmol/L (3.5-5.1); Sodium 135 mmol/L (136-145)
[2017-07-22] MEDS: Furosemide 40 MG TAB PO SCH (06:43)
[2017-07-22] MEDS: Docusate 100 MG CAP PO SCH ×2 (08:22→20:39)
[2017-07-22] MEDS: Lisinopril 5 MG TAB PO SCH (08:22)
[2017-07-22] MEDS: Magnesium Chloride 64 MG TAB PO SCH ×2 (08:22→20:46)
[2017-07-22] MEDS: Famotidine 20 MG TAB PO SCH (08:22)
[2017-07-22] MEDS: Potassium Chloride 20 MEQ TAB PO SCH ×2 (08:22→16:19)
[2017-07-22] MEDS: Carvedilol 3.125 MG TAB PO SCH ×2 (08:22→20:39)
[2017-07-22] MEDS ORDERED: Amlodipine 5 MG TAB PO SCH ×2 (09:45→10:00)
[2017-07-22] MEDS ORDERED: Lisinopril 5 MG TAB PO SCH (10:17)
[2017-07-22] MEDS ORDERED: Lisinopril 10 MG TAB PO SCH (10:45)
--- NOTE | 2017-07-22 13:12 | PDOC.CTH ---
Cardiology Progress Note - Subjective The pt seen and examined. No overnight events. No cardiac complaints. However , she feels very fatigue after she had transvaginal exam. - Objective Vital Signs Temp Pulse Resp BP BP BP Pulse Ox 07/22/17 12:15 97.9 F 71 16 141/85 H 96 07/22/17 11:01 76 151/85 H 07/22/17 08:22 76 179/106 H 07/22/17 08:00 98 F 76 20 07/22/17 07:44 98.0 F 76 20 179/106 H 95 07/22/17 04:53 98.0 F 82 16 143/73 H 96 Admit Weight 189 lb 3.2 oz Weight 164 lb 4.8 oz 07/21/17 07/22/17 07/23/17 06:59 06:59 06:59 Intake Total 1010 200 Output Total 1320 800 600 Balance -310 600 600 - Physical Examination General/Neuro: alert & oriented x3 Neck: no JVD present Lungs: CTA Heart: other: (irregular) Abdomen: soft Extremities: other: (1+ pitting BLE edema) - Telemetry Telemetry Rhythm: Afib - Labs Result Diagrams: 07/22/17 05:25 07/22/17 05:25 Troponin/CKMB CK-MB (CK-2) 5.1 ng/mL (0-6.6) 07/16/17 19:48 Troponin I 0.028 ng/mL (< 0.028) 07/18/17 04:34 - Assessment/Plan 1. Acute on chronic diastolic HF - Stable with Lasix 40mg PO daily. Trace BLE edema. On BBlocker, ANY, and Lasix. 2. Afib with RVR - Hx of Bradycardia with HR down to 33 on 07/18/17. Stable HR with Afib With HR 70-80s since 07/19/17. Stress test on 07/21/17 showed normal. Will start ASA when she is stable and no longer bleeding. 3. HTN - stable; cont. to monitor 4. Mod - stable; cont. to monitor 5. CKD stage 3 - stable; cont. to monitor 6. anemia - stable; Cont. to monitor 7. Hyponatremia - improving; 8. Obese - 9. Acute Bleeding - stable; Hgb has been stable. S/p Pelvic and renal U/S on showed normal. She underwent transvaginal exam today and the result is pending at this moment. MAR reviewed * Echo on 07/17/17 showed EF 50-55%, grade I diastolic dysfunction, mod dilated LA, mod SIOMARA, mod-severe MR, mild AR, mod , mod-severe TR, and mild [place]. * No further significant bradycardia and no tachycardia since 07/19/17. No pacemaker indicated at this time. * Stress test on 07/21/17 showed normal * Pelvic and renal U/S were done today and the result is pending at this time. . Review of Systems - Review of Systems Constitutional: reports: no symptoms reported EENTM: reports: no symptoms reported Respiratory: reports: no symptoms reported Cardiac (ROS): reports: no symptoms reported ABD/GI: reports: no symptoms reported : reports: no symptoms reported Musculoskeletal: reports: see HPI
[2017-07-22] MEDS: cefTRIAXone\\ROCEPHIN 1 GM in Sodium Chloride 0.9% 100 ML IVPB SCH (13:43)
[2017-07-22 13:45] VITALS: BMI 28.2
--- NOTE | 2017-07-22 16:19 | PDOC.PN ---
- Subjective Encounter Start Date: 07/22/17 Encounter Start Time: 14:00 Patient seen and examined for CHF. Vaginal bleeding resolving. Feels weak. No new complaints. No overnight events - Objective Resuscitation Status: Resuscitation Status FULL:Full Resuscitation MAR Reviewed: Yes Vital Signs & Weight: Vital Signs (12 hours) Temp Pulse Resp BP BP BP Pulse Ox 07/22/17 12:15 97.9 F 71 16 141/85 H 96 07/22/17 11:01 76 151/85 H 07/22/17 08:22 76 179/106 H 07/22/17 08:00 98 F 76 20 07/22/17 07:44 98.0 F 76 20 179/106 H 95 07/22/17 04:53 98.0 F 82 16 143/73 H 96 Weight Admit Weight 189 lb 3.2 oz Weight 164 lb 4.8 oz I&O: 07/21/17 07/22/17 07/23/17 06:59 06:59 06:59 Intake Total 1010 200 Output Total 1320 800 600 Balance -310 -600 -600 Result Diagrams: 07/23/17 04:12 07/23/17 04:12 EKG Reviewed by me: Yes (Tele Afib) Phys Exam - Physical Examination Constitutional: NAD Respiratory: no wheezing, no rhonchi Cardiovascular: no rub, irregular Gastrointestinal: soft, non-tender, positive bowel sounds Musculoskeletal: edema present (improving) Neurological: moves all 4 limbs Psychiatric: A&O x 3 Dx/Plan (1) Acute diastolic CHF (congestive heart failure) Code(s): I50.31 - ACUTE DIASTOLIC (CONGESTIVE) HEART FAILURE Status: Acute Comment: diuresing well (2) Atrial fibrillation with rapid ventricular response Code(s): I48.91 - UNSPECIFIED ATRIAL FIBRILLATION Status: Acute Comment: Rate controlled. (3) Hypertensive urgency Code(s): I16.0 - HYPERTENSIVE URGENCY Status: Acute Comment: BP improving, Lisinopril dose increased. On Coreg and Amlodipine (4) UTI (urinary tract infection) Status: Acute Comment: on Ceftriaxone - Mixed culture (5) Vagina bleeding Code(s): N93.9 - ABNORMAL UTERINE AND VAGINAL BLEEDING, UNSPECIFIED Status: Acute Comment: improving. s/p Vaginal ultrasound today - report pending (6) CKD (chronic kidney disease), stage III Code(s): N18.3 - CHRONIC KIDNEY DISEASE, STAGE 3 (MODERATE) Status: Chronic - Plan DVT proph w/SCDs Cont Atbx, Change Potassium to daily -: Await Prepress Operator input -: Await Vag USG report -: DC planning in AM to SNF if ok with consultants -: AM labs, Will consider adding Plavix in AM if vaginal bleeding resolves. Review of Systems - Review of Systems Respiratory: negative: Cough, Dry, Shortness of Breath, Hemoptysis, SOB with Excertion, Pleuritic Pain, Sputum, Wheezing Cardiovascular: negative: chest pain, palpitations, orthopnea, paroxysmal nocturnal dyspnea, edema, light headedness, other - Medications/Allergies Allergies/Adverse Reactions: Allergies Allergy/AdvReac Type Severity Reaction Status Date / Time aspirin Allergy Verified 07/17/17 00:39 barium iodide Allergy Verified 07/17/17 17:14 propoxyphene [From Darvon] Allergy Verified 07/17/17 00:39 Medications: Current Medications Acetaminophen (Tylenol) 650 mg PO Q4H PRN PRN Reason: Headache/Fever or Pain Amlodipine Besylate (Norvasc) 5 mg PO DAILY [facility] Bisacodyl (Dulcolax) 10 mg [place] Q24H PRN PRN Reason: Constipation Calcium Carbonate (Tums) 1,000 mg PO Q4H PRN PRN Reason: Heartburn or Indigestion Last Admin: 07/20/17 06:37 Dose: 1,000 mg Carvedilol (Coreg) 3.125 mg PO BID [facility] Last Admin: 07/22/17 08:22 Dose: 3.125 mg Docusate Sodium (Colace) 100 mg PO BID [facility] Last Admin: 07/22/17 08:22 Dose: 100 mg Famotidine (Pepcid) 20 mg PO DAILY [facility] Last Admin: 07/22/17 08:22 Dose: 20 mg Furosemide (Lasix) 40 mg PO DAILY-[facility] Last Admin: 07/22/17 06:43 Dose: 40 mg Ceftriaxone Sodium 1 gm/ (Sodium Chloride) 100 mls @ 200 mls/hr IVPB Q24HR [facility] Last Admin: 07/22/17 13:43 Dose: 100 mls Lisinopril (Zestril) 10 mg PO DAILY [facility] Magnesium Chloride (Slow-Mag) 64 mg PO BID [facility] Last Admin: 07/22/17 08:22 Dose: 64 mg Magnesium Hydroxide (Milk Of Magnesium) 30 ml PO DAILYPRN PRN PRN Reason: Constipation Melatonin (Melatonin) 3 mg PO HS PRN PRN Reason: Insomnia Last Admin: 07/21/17 20:56 Dose: 3 mg Nitroglycerin (Nitrostat) 0.4 mg PO Q5MIN PRN PRN Reason: Chest Pain Last Admin: 07/20/17 21:15 Dose: 0.4 mg Potassium Chloride (K-Dur) 20 meq PO BID- [facility] Last Admin: 07/22/17 08:22 Dose: 20 meq Senna (Senokot) 2 tab PO HSPRN PRN PRN Reason: Constipation Sodium Chloride (Flush - Normal Saline) 10 ml IVF PRN PRN PRN Reason: Saline Flush Last Admin: 07/21/17 12:44 Dose: 10 ml
[2017-07-22] MEDS ORDERED: Misoprostol 100 MCG TAB VAG SCH ×2 (17:00→21:15)
[2017-07-22] MEDS: Melatonin 3 MG TAB PO PRN (20:57)
[2017-07-23 04:45] LABS: Hemoglobin 11.2 g/dL (12.0-16.0); Platelet Count 316 thou/uL (130-400)
[2017-07-23 04:57] LABS: Anion Gap 12 mmol/L (10-20); BUN (Urea Nitrogen) 26 mg/dL (9.8-20.1); Calc. Creatinine Clearance 53 mL/min (70-130); Calcium 8.6 mg/dL (7.8-10.44); Carbon Dioxide 27 mmol/L (23-31); Chloride 99 mmol/L (98-107); Estimated GFR-MDRD 59; Glucose 97 mg/dL (83-110); Potassium 4.5 mmol/L (3.5-5.1); Sodium 133 mmol/L (136-145)
--- NOTE | 2017-07-23 06:11 | CON ---
DATE OF CONSULTATION: 07/22/2017 REFERRING PHYSICIAN: Dr. Omar Allen. REASON FOR CONSULTATION: Postmenopausal bleeding. HISTORY OF PRESENT ILLNESS: The patient is an 86-year-old female, who was admitted on 07/17/2017 and diagnosed with new onset heart failure, hypertensive urgency, obesity, hyponatremia, atrial fibrilla tion and was treated accordingly. In the process of treatment, the patient was placed on Lovenox. S hortly after this, the patient reported that she was having some vaginal bleeding, which quickly led to discontinuation of her Lovenox and the bleeding has since stopped. [facility] was consulted for evalu ation of this postmenopausal bleeding. The patient reports that prior to initiation of Lovenox, the patient has had no vaginal discharge for as long as she can remember. No vaginal bleeding for as vesna g as she can remember since her perimenopausal days. We discussed the findings of this vaginal bleed ing and its potential etiologies including atrophy of the lining and the presence of anticoagulation, endometrial polyp or other benign tumor, and endometrial cancer. We discussed that in the presence of the overall setting and the new onset bleeding since anticoagulation was started and the discontin uation of bleeding when it was stopped that her bleeding is likely secondary to that; however, I had recommended further evaluation. The patient was given 2 options. Option one was to proceed with an endometrial biopsy to get a pathology diagnosis of the lining of her uterus and then the option two g iven that this is likely a benign condition iatrogenic due to the anticoagulation, that it would be r easonable to wait another month or so to allow the blood in the cavity to be reabsorbed or discharged and to repeat an ultrasound at that time if her endometrial lining is 4 mm or less and no other brit r abnormalities on the ultrasound, the patient would no longer have indication for a biopsy. If ther e continues to be fluid in the cavity or the lining is thicker than 4 mm, there would be indication f or a biopsy to be performed at that time. After thoroughly discussing her options, the patient has c hosen to proceed with a biopsy in this hospitalization. We did discuss the likely stenotic nature of her os. In anticipation of this, the patient has been pretreated with 25 mcg of Cytotec x2. The pa katrin has been counseled and consented for an endometrial biopsy attempt in the morning. We discusse d the risks include bleeding, infection, damage to surrounding organs, perforation of the uterus, dis comfort and pain and cramping. We also discussed the possibility that her cervical os is too stenoti c for us to successfully perform an endometrial biopsy without sedation. We also reviewed the role t sridhar the Cytotec could play and assisting us with this matter. Plan at this point in time is to dose her with misoprostol with the intention of having an endometrial biopsy performed tomorrow morning ar ound 7:00, which the patient has been consented for. PHYSICAL EXAMINATION: VITAL SIGNS: At the time of our evaluation included blood pressure of 147/73, temperature 98.0, puls e of 80, satting 93% on room air with a respiratory rate of 15. GENERAL: She appears to be in no acute distress. She is alert and oriented, cooperative and pleasan t to interact with. HEAD: Normocephalic, atraumatic. ABDOMEN: Soft and nontender. LABORATORY DATA: Her hemoglobin is 11.2, hematocrit 35.3, platelets of 353,000. ASSESSMENT AND PLAN: The patient is an 86-year-old female with postmenopausal bleeding, likely secon rekha to anticoagulation and an atrophic endometrial lining. However, to rule out any malignant proce ss, which is still possible, the patient has agreed to proceed with an attempted endometrial biopsy. The patient will be premedicated with 25 mcg of misoprostol PV x2 and we will attempt an endometrial biopsy in the morning around 7:00. If we are unsuccessful, the patient has opted to wait at that ti me for a repeat ultrasound in approximately 30 days. If the lining is 4 mm or less, there are no oth er abnormalities present in the lining that should be sufficient to not need to proceed with the biop sy. The patient and her daughter have agreed to have this performed in the outpatient setting with velvet gallegos up with an [employer]OMC[facility]. We will be following up with the endometrial biopsy attempt results.
[2017-07-23] MEDS ORDERED: Potassium Chloride 20 MEQ TAB PO SCH (08:00)
[2017-07-23] MEDS ORDERED: Clopidogrel Bisulfate 75 MG TAB PO SCH (09:00)
[2017-07-23] MEDS ORDERED: Lisinopril 5 MG TAB PO SCH (09:00)
[2017-07-23 09:04] LABS: INR-International Normal Ratio 1.2; PTT 27.1 SEC (22.9-36.1); Prothrombin Time 15.2 SEC (12.0-14.7)
--- NOTE | 2017-07-23 09:09 | PRG ---
DATE OF SERVICE: 07/23/2017 HISTORY OF PRESENT ILLNESS: The patient is an 86-year-old female who experienced some vaginal bleedi ng in the hospital after institution of Lovenox. We discussed the potential etiologies in addition t o the most likely cause and made a decision to attempt an endometrial biopsy with the understanding t hat her cervix may be stenotic and would be unsuccessful. The patient has been given 2 doses of 25 m cg of Cytotec PB last night and yesterday afternoon and this morning and was taken to the [facility] exam ro om with her nurse and daughter to attempt biopsy. PREPROCEDURAL DIAGNOSES: 1. New onset congestive heart failure. 2. Postmenopausal bleeding. PROCEDURE: Endometrial biopsy. SURGEON: Dr. Elieser Banegas COMPLICATIONS: None. PROCEDURE IN DETAIL: The patient was placed in dorsal lithotomy position in stirrups and then draped . A speculum was then used to identify the cervix. After prepping the cervix with Betadine a 2 mm p ipette was attempted to pass into the cervical os, but was unable to due to stenosis. A single-tooth tenaculum was then applied to the anterior lip of the cervix and a second attempt was made to pass t he pipette into the uterine cavity and was unsuccessful. At this point in time, given the stenosis o f the cervix and the overall situation, the decision was made to abort the procedure and moved to [facility] i[facility]. The tenaculum was removed and the cervix was noted to be hemostatic and the patient was then ta rehana back to her room with her nurse and daughter in stable condition. PLAN: At this point is to have a followup ultrasound in a month or two to verify the endometrial cav ity and lining. If this bleeding is just simply from the Lovenox, at that time, hopefully more easil y seen would be atrophy of the lining, which would be indication for no need for biopsy. If the lini ng demonstrates a thickness more than 4 mm, then a plan is going to be made to attempt a biopsy in a more controlled fashion with the patient under sedation or in the OR.
[2017-07-23] MEDS ORDERED: Aspirin 325 mg Enteric Coated Tablet PO SCH (09:30)
[2017-07-23] MEDS ORDERED: Aspirin 81 mg Enteric Coated Tablet PO SCH (09:30)
[2017-07-23] MEDS: Famotidine 20 MG TAB PO SCH (09:39)
[2017-07-23] MEDS: Magnesium Chloride 64 MG TAB PO SCH ×2 (09:39→22:38)
[2017-07-23 09:41] LABS: CKMB 1.1 ng/mL (0-6.6); Troponin I Less than 0.010 ng/mL (< 0.028)
[2017-07-23] MEDS: Amlodipine 5 MG TAB PO SCH (09:42)
[2017-07-23] MEDS: Furosemide 40 MG TAB PO SCH (09:42)
[2017-07-23] MEDS: Docusate 100 MG CAP PO SCH ×2 (09:42→22:36)
--- NOTE | 2017-07-23 09:42 | PDOC.EVN ---
Event Note - Event Note Event Note: Code green/stroke alert called - [facility] 4. CT brain negative. I d/w Dr Vega who recommended to hold Aspirin for now and get STAT MRI brain, MRA head/neck.
[2017-07-23] MEDS ORDERED: Carvedilol 6.25 MG TAB PO SCH (09:45)
[2017-07-23] MEDS: Carvedilol 3.125 MG TAB PO SCH (10:00)
--- NOTE | 2017-07-23 10:51 | CT ---
CT BRAIN WITHOUT CONTRAST: HISTORY: Stroke protocol, left-sided weakness. FINDINGS: There are changes of cortical atrophy and chronic small-vessel ischemic disease. The ventricular siz e is appropriate and the basilar cisterns are patent. No evidence of acute infarct, hemorrhage, midl ine shift, or abnormal extraaxial fluid collections is seen. There are vascular calcifications. The bony calvarium is intact. The visualized paranasal sinuses and mastoid air cells are well aerated. IMPRESSION: No CT evidence of acute intracranial process. Findings were discussed over the telephone with Dr. Omar Allen at 9:06 a.m. SERGEI CUNNINGHAM POS: [facility]
--- NOTE | 2017-07-23 12:13 | MRI ---
MR ANGIOGRAM OF CEREBRAL CIRCULATION: Technique: [id number] MR angiogram performed of the vertebral arteries. Indication: Stroke alert. Mental status change. FINDINGS: Visualized intracranial internal carotid arteries appear unremarkable. The middle cerebral arteries s hows luminal irregularity which may represent atherosclerotic change. There is mild luminal narrowing at the M1 segments, however, no evidence of focal occlusion. The A2 and A3 vessels appear symmetric. Anterior cerebral arteries are patent. There is evidence of narrowing of the proximal A2 segment on t he left. Basilar artery appears unremarkable. The posterior cerebrals appear unremarkable. IMPRESSION: No evidence of proximal occlusion of the major cerebral arteries. There is narrowing of the AP segmen t on the left and mild luminal narrowing of the M1 segments bilaterally suggesting atherosclerotic ch pérez. POS: [facility]
--- NOTE | 2017-07-23 12:46 | MRI ---
MRI BRAIN WITHOUT CONTRAST: HISTORY: Altered mental status. Left-sided weakness. CORRELATION: CT scan done earlier today (obtained at 9:00 a.m.). FINDINGS: There is a small focus of restricted diffusion in the left subcortical frontal lobe, which demonstrat es decreased signal on ADC maps. This is consistent with an acute infarct. There are a couple of ti ny foci of decreased signal intensity in the walter on the gradient echo sequences, consistent with hem osiderin, likely representing small cavernoma. There are changes of cortical atrophy and chronic small vessel ischemic disease. The ventricular siz e is appropriate, and the basilar cisterns are patent. No midline shift or abnormal extraaxial fluid collections are seen. IMPRESSION: 1. Small acute subcortical left frontal lobe infarction. 2. 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 3. Cortical atrophy. 4. Chronic small vessel ischemic disease. This study was interpreted in consultation with Dr. Emery Pena (neuroradiologist), who concurs. POS: [facility]
--- NOTE | 2017-07-23 12:48 | MRI ---
MR ANGIOGRAM OF NECK: Technique: [id number] imaging obtained of the extracranial carotid arteries. Indications: Stroke alert. Mental status change. FINDINGS: The origin of the arch vessels is not evaluated. The common carotid arteries appear unremarkable. There is mild luminal narrowing in the proximal left internal carotid artery at its origin which may represent some atherosclerotic change. This appears to produce mild to moderate stenosis which does n ot appear hemodynamically significant on the source axial images with degree of stenosis appearing le ss than 50% diameter on the source images. No evidence of significant disease in the right internal carotid artery and no focal stenosis seen in the proximal right ICA. The mid and distal ICAs are unremarkable bilaterally. The vertebral arteries are patent and appear unremarkable. IMPRESSION: 1. Mild luminal irregularity in the proximal left internal carotid artery at its origin. No evidence of hemodynamically significant stenosis identified. POS: [facility]
[2017-07-23] MEDS ORDERED: Aspirin 325 MG TAB PO SCH (13:30)
[2017-07-23] MEDS: cefTRIAXone\\ROCEPHIN 1 GM in Sodium Chloride 0.9% 100 ML IVPB SCH (13:35)
--- NOTE | 2017-07-23 17:15 | PDOC.CTH ---
Cardiology Progress Note - Objective Vital Signs Temp Pulse Resp BP BP Pulse Ox 07/23/17 15:28 98.8 F 79 16 124/74 94 L 07/23/17 12:26 158/102 H 07/23/17 12:00 97.5 F L 90 18 158/102 H 97 07/23/17 10:00 83 162/77 H 07/23/17 09:42 83 162/77 H 07/23/17 08:00 97.7 F 83 18 181/101 H 94 L 07/23/17 07:30 97.7 F 83 18 Admit Weight 189 lb 3.2 oz Weight 162 lb 14.4 oz 07/22/17 07/23/17 07/24/17 06:59 06:59 06:59 Intake Total 200 1340 395 Output Total 800 600 Balance -600 740 395 - Physical Examination General/Neuro: alert & oriented x3 Neck: no JVD present Lungs: CTA Heart: other: (irreg./irreg.) Abdomen: soft - Labs Result Diagrams: 07/23/17 04:12 07/23/17 04:12 Troponin/CKMB CK-MB (CK-2) 1.1 ng/mL (0-6.6) 07/23/17 08:44 Troponin I Less than 0.010 ng/mL (< 0.028) 07/23/17 08:44 - Assessment/Plan 1. Acute on chronic diastolic HF - Stable with Lasix 40mg PO daily. On BBlocker, ANY, and Lasix. 2. Afib with RVR - Hx of Bradycardia with HR down to 33 on 07/18/17. Stable HR with Afib With HR 70-80s since 07/19/17. Stress test on 07/21/17 showed normal. ASA started after small CVA earlier today.Watch for bleeding. 3. CVA, possible related to A-fib. 4. Mod - stable; cont. to monitor 5. CKD stage 3 - stable; cont. to monitor 6. anemia - stable; Cont. to monitor 7. Hyponatremia - improving; 8. Obese - 9. Acute Bleeding - stable; Hgb has been stable. S/p Pelvic and renal U/S on showed normal. She underwent transvaginal exam, unable to do biopsy. 10. HTN improved. MAR reviewed
--- NOTE | 2017-07-23 17:45 | PDOC.PN ---
- Subjective Encounter Start Date: 07/23/17 Encounter Start Time: 09:00 Patient seen and examined during the code green. No new complaints. No overnight events - Objective Resuscitation Status: Resuscitation Status FULL:Full Resuscitation MAR Reviewed: Yes Vital Signs & Weight: Vital Signs (12 hours) Temp Pulse Resp BP BP Pulse Ox 07/23/17 15:28 98.8 F 79 16 124/74 94 L 07/23/17 12:26 158/102 H 07/23/17 12:00 97.5 F L 90 18 158/102 H 97 07/23/17 10:00 83 162/77 H 07/23/17 09:42 83 162/77 H 07/23/17 08:00 97.7 F 83 18 181/101 H 94 L 07/23/17 07:30 97.7 F 83 18 Weight Admit Weight 189 lb 3.2 oz Weight 162 lb 14.4 oz I&O: 07/22/17 07/23/17 07/24/17 06:59 06:59 06:59 Intake Total 200 1340 395 Output Total 800 600 Balance -600 740 395 Result Diagrams: 07/23/17 04:12 07/23/17 04:12 EKG Reviewed by me: Yes (Tele Afib) Phys Exam - Physical Examination Constitutional: NAD Respiratory: no wheezing, no rhonchi Cardiovascular: no rub Gastrointestinal: soft, non-tender, positive bowel sounds Musculoskeletal: no edema Neurological: moves all 4 limbs Slurred speech, Confusion+ Psychiatric: A&O x 3 Dx/Plan (1) Acute CVA (cerebrovascular accident) Code(s): I63.9 - CEREBRAL INFARCTION, UNSPECIFIED Status: Acute Comment: suspected due to Afib (2) Acute diastolic CHF (congestive heart failure) Code(s): I50.31 - ACUTE DIASTOLIC (CONGESTIVE) HEART FAILURE Status: Acute Comment: diuresing well (3) Atrial fibrillation with rapid ventricular response Code(s): I48.91 - UNSPECIFIED ATRIAL FIBRILLATION Status: Acute Comment: Rate controlled, Anticoag on hold due to Vag bleed (4) Hypertensive urgency Code(s): I16.0 - HYPERTENSIVE URGENCY Status: Acute Comment: BP improving, Lisinopril dose increased. On Coreg and Amlodipine (5) UTI (urinary tract infection) Status: Acute Comment: on Ceftriaxone - Mixed culture (6) Vagina bleeding Code(s): N93.9 - ABNORMAL UTERINE AND VAGINAL BLEEDING, UNSPECIFIED Status: Acute Comment: No new episodes (7) CKD (chronic kidney disease), stage III Code(s): N18.3 - CHRONIC KIDNEY DISEASE, STAGE 3 (MODERATE) Status: Chronic - Plan DVT proph w/SCDs Started on ASA per Neuro - Not true allergy -: Cont current meds as below -: Neuro consult -: Cardio following -: Outpt Office Assistant follow up Review of Systems - Review of Systems Other: Cannot obtain due to confusion - Medications/Allergies Allergies/Adverse Reactions: Allergies Allergy/AdvReac Type Severity Reaction Status Date / Time aspirin Allergy Verified 07/17/17 00:39 barium iodide Allergy Verified 07/17/17 17:14 propoxyphene [From Darvon] Allergy Verified 07/17/17 00:39 Medications: Current Medications Acetaminophen (Tylenol) 650 mg PO Q4H PRN PRN Reason: Headache/Fever or Pain Last Admin: 07/23/17 04:42 Dose: 650 mg Amlodipine Besylate (Norvasc) 5 mg PO DAILY [facility] Last Admin: 07/23/17 09:42 Dose: 5 mg Aspirin (Aspirin) 325 mg PO DAILY [facility] Bisacodyl (Dulcolax) 10 mg MD Q24H PRN PRN Reason: Constipation Calcium Carbonate (Tums) 1,000 mg PO Q4H PRN PRN Reason: Heartburn or Indigestion Last Admin: 07/20/17 06:37 Dose: 1,000 mg Carvedilol (Coreg) 6.25 mg PO BID [facility] Docusate Sodium (Colace) 100 mg PO BID [facility] Last Admin: 07/23/17 09:42 Dose: 100 mg Famotidine (Pepcid) 20 mg PO DAILY [facility] Last Admin: 07/23/17 09:39 Dose: 20 mg Furosemide (Lasix) 40 mg PO DAILY-AC [facility] Last Admin: 07/23/17 09:42 Dose: 40 mg Ceftriaxone Sodium 1 gm/ (Sodium Chloride) 100 mls @ 200 mls/hr IVPB Q24HR [facility] Last Admin: 07/23/17 13:35 Dose: 100 mls Lisinopril (Zestril) 10 mg PO BID [facility] Magnesium Chloride (Slow-Mag) 64 mg PO BID [facility] Last Admin: 07/23/17 09:39 Dose: 64 mg Magnesium Hydroxide (Milk Of Magnesium) 30 ml PO DAILYPRN PRN PRN Reason: Constipation Melatonin (Melatonin) 3 mg PO HS PRN PRN Reason: Insomnia Last Admin: 07/22/17 20:57 Dose: 3 mg Nitroglycerin (Nitrostat) 0.4 mg PO Q5MIN PRN PRN Reason: Chest Pain Last Admin: 07/20/17 21:15 Dose: 0.4 mg Senna (Senokot) 2 tab PO HSPRN PRN PRN Reason: Constipation Sodium Chloride (Flush - Normal Saline) 10 ml IVF PRN PRN PRN Reason: Saline Flush Last Admin: 07/22/17 20:40 Dose: 10 ml
--- NOTE | 2017-07-23 20:09 | EKG ---
Test Reason : STAT Blood Pressure : / mmHG Vent. Rate : 076 BPM Atrial Rate : 097 BPM P-R Int : 000 ms QRS Dur : 118 ms QT Int : 420 ms P-R-T Axes : 000 -49 060 degrees QTc Int : 472 ms Atrial fibrillation Left anterior fascicular block Left ventricular hypertrophy with QRS widening and repolarization abnormality Abnormal ECG T wave inversion more evident in Inferior leads Inverted T waves have replaced nonspecific T wave abnormality in Lateral leads Confirmed by SAWYER BOOKER (2) on 07/23/2017 8:09:10 PM Referred By: AGATA Confirmed By:SAWYER BOOKER
--- NOTE | 2017-07-23 20:28 | EKG ---
Test Reason : Blood Pressure : / mmHG Vent. Rate : 093 BPM Atrial Rate : 120 BPM P-R Int : 000 ms QRS Dur : 114 ms QT Int : 398 ms P-R-T Axes : 000 -54 077 degrees QTc Int : 494 ms Atrial fibrillation Left anterior fascicular block Voltage criteria for left ventricular hypertrophy Nonspecific ST and T wave abnormality , probably digitalis effect Prolonged QT Abnormal ECG When compared with ECG of 20-JUL-2017 21:16, (Unconfirmed) Previous ECG has undetermined rhythm, needs review Nonspecific T wave abnormality has replaced inverted T waves in Lateral leads Confirmed by SAWYER BOOKER (2) on 07/23/2017 8:27:36 PM Referred By: AGATA Confirmed By:SAWYER BOOKER
[2017-07-23] MEDS: Carvedilol 6.25 MG TAB PO SCH (22:36)
[2017-07-23] MEDS: Lisinopril 10 MG TAB PO SCH (22:37)
--- NOTE | 2017-07-24 00:39 | CON ---
DATE OF CONSULTATION: 07/23/2017 REASON FOR CONSULTATION: Acute-onset aphasia, stroke alert initiated. REFERRING PHYSICIAN: Omar Allen MD HISTORY OF PRESENT ILLNESS: Ms. Mariee is a pleasant 86-year-old female who has been cons ulted for evaluation of acute onset of aphasia and left lower extremity weakness. Stroke alert was i nitiated. I had received a phone call from Dr. Allen regarding this patient, and we had discussed th e case over the phone. Apparently, the patient has been admitted to the hospital with new-onset atri al fibrillation with RVR. She was started on weight-based Lovenox for the atrial fibrillation; howev er, she had developed vaginal bleeding. Due to this reason on 07/21/2017, after the morning dose, th e Lovenox was discontinued. This morning, she had a sudden onset of word finding difficulties and ga rbled speech, which prompted us code green. The patient was also noted to have left lower extremity weakness. According to the nurse, the patient was seen normal 50 minutes prior to this episode. Her NIH stroke scale was noted to be 4 at the time of the code green. I did discuss the case with Dr. Halle rivas over the phone and had recommended to obtain MRI brain without contrast and MRA head and neck as she is allergic to IV contrast agent. Due to the recent episode of vaginal bleeding and due to the fact that she had received Lovenox less than 48 hours, she was not a candidate for IV TPA. Per nurse , the patient has noted improvement in her strength of left lower extremity; however, she continues t o have some difficulty with expressive aphasia. PAST MEDICAL HISTORY: Significant for hypertension, rheumatic fever as a child, degenerative joint d isease. PAST SURGICAL HISTORY: Significant for cholecystectomy and D&C procedure. CURRENT MEDICATIONS: Only Advil as needed. ALLERGIES: Significant for ASPIRIN, DARVOCET, and IODINE. FAMILY HISTORY: Significant for brother with gastric cancer. SOCIAL HISTORY: She does not smoke cigarettes, drink alcohol, or use illicit drugs. 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 REVIEW OF SYSTEMS: As mentioned above in HPI, otherwise negative. PHYSICAL EXAMINATION: VITAL SIGNS: Blood pressure of 124/74, pulse of 79, temperature of 98.8, respirations of 16, O2 sats of 94% on room air. GENERAL: Well-developed, well-nourished female in no apparent distress. RESPIRATORY: Clear to auscultation bilaterally. CARDIOVASCULAR: Regular rate and rhythm. NEUROLOGIC: Mental status: The patient is awake, alert, oriented x2. Speech and language: Mild ex pressive aphasia noted. Cranial nerves: Pupils are 3 mm and reactive. Visual dickens are full to th reat. External ocular muscles are intact. No nystagmus is noted. Face is symmetric. Tongue and uv lani are midline. Motor exam showed normal tone and bulk with 5/5 strength in both upper extremities as well in both lower extremities. There is no pronator drift noted. Sensory: Sensation is intact and symmetric. Deep tendon reflexes, 2+ reflexes in both upper and lower extremities. Babinski, justin ntar responses flexion bilaterally. Coordination intact to [id number] on both sides. LABORATORY DATA: Reviewed, which included CBC, BMP, lipid profile, which is significant for hemoglob in 11.5, hematocrit of 35.2, sodium of 133, BUN of 26, otherwise unremarkable. IMAGING STUDIES: MRI brain without contrast was reviewed, which showed small acute left frontal subc ortical infarct, small cavernoma in the walter, otherwise unremarkable. MRA head and neck were reviewe d, which showed no significant intracranial or extracranial vascular abnormality. IMPRESSION: 1. 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 2. Expressive aphasia due to acute left middle cerebral artery distribution ischemic infarct. 3. Atrial fibrillation. ASSESSMENT AND PLAN: Ms. Mariee is a pleasant 86-year-old female, who presented initially with the new-onset atrial fibrillation, had developed vaginal bleeding secondary to weight-based [place] enox. This was discontinued less than 48 hours ago, after which she had sudden onset of expressive a phasia. She was not a candidate for IV TPA due to recent vaginal bleeding as well as recent use of a nticoagulation therapy that increases the risk for TPA bleeding risk. I had obtained MRA head and ne ck to evaluate for large-vessel occlusion, which was negative and thus she was not a candidate for an y interventional procedure. At this time, I would recommend continuing her on aspirin 325 mg daily f or secondary stroke prevention. In my opinion, given her atrial fibrillation, she should be on Eliqu is or Xarelto for secondary stroke prevention. Per nurse, family is debating whether to start on ant icoagulation therapy as she had had history of GI bleed in the past from aspirin itself. Continue PT , OT, speech therapy. Continue supportive care. Thank you for consultation.
[2017-07-24 05:58] LABS: #Lymphocytes 2.2 thou/uL (1.20-3.40); #Monocytes 0.8 thou/uL (0.11-0.59); #Neutrophils 5.8 thou/uL (1.40-6.50); %Basophils 0.4 % (0.0-1.0); %Eosinophils 0.5 % (0.0-10.0); %Lymphocytes 24.7 % (21.0-51.0); %Monocytes 8.7 % (0.0-10.0); %Neutrophils 65.6 % (42.0-75.0); Hemoglobin 11.7 g/dL (12.0-16.0); Mean Corpuscular HGB CONC 31.6 g/dL (32.0-36.0); Mean Corpuscular Hemoglobin 25.8 pg (27.0-31.0); Mean Corpuscular Volume 81.4 fl (81.0-99.0); Mean Platelet Volume 7.2 fL (7.4-10.4); Platelet Count 322 thou/uL (130-400); RBC Distribution Width 14.5 % (11.5-14.5); Red Blood Cell (RBC) Count 4.52 mill/uL (4.20-5.40); White Blood Cell (WBC) Count 8.8 thou/uL (4.8-10.8)
[2017-07-24 06:09] LABS: Anion Gap 11 mmol/L (10-20); BUN (Urea Nitrogen) 24 mg/dL (9.8-20.1); Calc. Creatinine Clearance 57 mL/min (70-130); Calcium 8.5 mg/dL (7.8-10.44); Carbon Dioxide 26 mmol/L (23-31); Chloride 98 mmol/L (98-107); Estimated GFR-MDRD 64; Glucose 101 mg/dL (83-110); Potassium 4.5 mmol/L (3.5-5.1); Sodium 130 mmol/L (136-145)
[2017-07-24] MEDS: Furosemide 40 MG TAB PO SCH (08:43)
[2017-07-24] MEDS: Carvedilol 6.25 MG TAB PO SCH ×2 (08:43→21:38)
[2017-07-24] MEDS: Famotidine 20 MG TAB PO SCH (08:43)
[2017-07-24] MEDS: Docusate 100 MG CAP PO SCH ×2 (08:43→21:38)
[2017-07-24] MEDS: Amlodipine 5 MG TAB PO SCH (08:43)
[2017-07-24] MEDS: Lisinopril 10 MG TAB PO SCH ×2 (08:43→21:39)
[2017-07-24] MEDS: Magnesium Chloride 64 MG TAB PO SCH ×2 (08:44→21:38)
[2017-07-24] MEDS ORDERED: Aspirin 325 MG TAB PO SCH (09:00)
[2017-07-24] MEDS ORDERED: Clopidogrel Bisulfate 75 MG TAB PO SCH (09:00)
[2017-07-24] MEDS ORDERED: Heparin 5,000 UNITS/ML VIAL SC SCH (09:00)
[2017-07-24] MEDS ORDERED: Aspirin 325 mg Enteric Coated Tablet PO SCH (09:00)
--- NOTE | 2017-07-24 09:21 | PDOC.CTH ---
Cardiology Progress Note - Subjective The pt seen and examined. No overnight events. No cardiac complaints. She is resting well. Per nurse, she follows command and eating well; however, unable to answer questions. - Objective Vital Signs Temp Pulse Resp BP BP Pulse Ox 07/24/17 08:43 85 168/102 H 07/24/17 07:59 98.6 F 85 20 168/102 H 96 07/24/17 03:38 99.4 F 96 20 138/85 97 07/24/17 00:00 98.3 F 78 16 144/77 H 96 07/23/17 22:37 141/93 H 07/23/17 22:36 143/93 H Admit Weight 189 lb 3.2 oz Weight 164 lb 8 oz 07/23/17 07/24/17 07/25/17 06:59 06:59 06:59 Intake Total 1340 995 240 Output Total 600 Balance 740 995 240 - Physical Examination Lungs: CTA Heart: other: (irregular) Abdomen: soft Extremities: other: (No edema) - Telemetry Telemetry Rhythm: AFib 80s - Labs Result Diagrams: 07/24/17 05:41 07/24/17 05:41 Troponin/CKMB CK-MB (CK-2) 1.1 ng/mL (0-6.6) 07/23/17 08:44 Troponin I Less than 0.010 ng/mL (< 0.028) 07/23/17 08:44 - Assessment/Plan 1. CVA with Lt side weakness - possible related to A-fib. ASA 325mg PO daily was resumed from yesterday. Per nurse, the pt have express aphasia, but mild Lt side weakness with very mild balance abnormality. Stop ASA and start Elqiuis 5mg BID from tomorrow. 2. Acute on chronic diastolic HF - Stable with Lasix 40mg PO daily. On BBlocker , ANY, and Lasix. 3. Afib with RVR - Hx of Bradycardia with HR down to 33 on 07/18/17. Stable HR with Afib With HR 70-80s since 07/19/17. Stress test on 07/21/17 showed normal. ASA started after CVA earlier yesterday. Stop ASA and start Elqiuis 5mg BID from tomorrow. Watch for bleeding. 4. Mod - stable; cont. to monitor 5. CKD stage 3 - stable; cont. to monitor 6. anemia - stable; Cont. to monitor 7. HTN - stable 8. Obese - 9. Acute Bleeding - stable; Hgb has been stable. S/p Pelvic and renal U/S on showed normal. She underwent transvaginal exam, unable to do biopsy. Plan to have another biopsy within 1 month as outpt. 10. Hyponatremia - Start fluid restriction 1200ml/day MAR reviewed Review of Systems - Review of Systems Constitutional: reports: see HPI EENTM: reports: see HPI Respiratory: reports: see HPI Cardiac (ROS): reports: see HPI ABD/GI: reports: see HPI : reports: see HPI
[2017-07-24] MEDS: cefTRIAXone\\ROCEPHIN 1 GM in Sodium Chloride 0.9% 100 ML IVPB SCH (12:20)
--- NOTE | 2017-07-24 18:59 | PDOC.PN ---
- Subjective Encounter Start Date: 07/24/17 Encounter Start Time: 19:00 Patient seen and examined for Acute CVA/Afib/CHF. No new focal deficits. No CP/ SOB. No overnight events - Objective Resuscitation Status: Resuscitation Status FULL:Full Resuscitation MAR Reviewed: Yes Vital Signs & Weight: Vital Signs (12 hours) Temp Pulse Pulse Pulse Pulse Resp BP 07/24/17 15:38 98.6 F 89 20 07/24/17 11:48 99.3 F 70 16 07/24/17 10:43 69 60 07/24/17 10:04 82 90 07/24/17 08:43 85 168/102 H 07/24/17 08:04 70 86 58 L 07/24/17 08:00 98.6 F 85 20 07/24/17 07:59 98.6 F 85 20 BP BP BP BP Pulse Ox 07/24/17 15:38 127/59 L 96 07/24/17 11:48 144/84 H 96 07/24/17 10:43 143/78 H 131/73 07/24/17 10:04 145/88 H 127/81 07/24/17 08:43 07/24/17 08:04 145/85 H 175/82 H 133/83 07/24/17 08:00 07/24/17 07:59 168/102 H 96 Weight Admit Weight 189 lb 3.2 oz Weight 164 lb 8 oz I&O: 07/23/17 07/24/17 07/25/17 06:59 06:59 06:59 Intake Total 1340 995 480 Output Total 600 Balance 740 995 480 Result Diagrams: 07/24/17 05:41 07/24/17 05:41 Radiology Reviewed by me: Yes (MRI - Acute left frontal lobe CVA) EKG Reviewed by me: Yes (Tele Afib) Phys Exam - Physical Examination Constitutional: NAD Some expressive aphasia Neck: no JVD, supple Respiratory: no wheezing, no rhonchi Symmetrical, Scat rales at bases Cardiovascular: no rub, irregular no heaves/pulsations Gastrointestinal: soft, non-tender, no distention, positive bowel sounds Musculoskeletal: no edema, pulses present Neurological: moves all 4 limbs No new focal deficits. Psychiatric: normal affect, A&O x 3 Dx/Plan (1) Acute CVA (cerebrovascular accident) Code(s): I63.9 - CEREBRAL INFARCTION, UNSPECIFIED Status: Acute Comment: suspected due to Afib (2) Acute diastolic CHF (congestive heart failure) Code(s): I50.31 - ACUTE DIASTOLIC (CONGESTIVE) HEART FAILURE Status: Acute Comment: diuresing well (3) Atrial fibrillation with rapid ventricular response Code(s): I48.91 - UNSPECIFIED ATRIAL FIBRILLATION Status: Acute Comment: Rate controlled on Coreg (4) Hypertensive urgency Code(s): I16.0 - HYPERTENSIVE URGENCY Status: Acute Comment: On Lisinopril, Coreg and Amlodipine (5) UTI (urinary tract infection) Status: Acute Comment: on Ceftriaxone - Mixed culture (6) CKD (chronic kidney disease), stage III Code(s): N18.3 - CHRONIC KIDNEY DISEASE, STAGE 3 (MODERATE) Status: Chronic (7) Swallowing dysfunction Code(s): R13.10 - DYSPHAGIA, UNSPECIFIED Status: Acute Comment: on modified diet (8) Vagina bleeding Code(s): N93.9 - ABNORMAL UTERINE AND VAGINAL BLEEDING, UNSPECIFIED Status: Resolved Comment: No new episodes - Plan PT/OT, speech therapy, DVT proph w/heparin, DVT proph w/SCDs I d/w Dr Reina - Dr Reina recommended starting Eliquis tonight. DC ASA. -: Risk with Eliquis d/w Patient/family - they stated understanding -: AM labs -: Cont current meds as below Review of Systems - Review of Systems Respiratory: negative: Cough, Dry, Shortness of Breath, Hemoptysis, SOB with Excertion, Pleuritic Pain, Sputum, Wheezing Cardiovascular: negative: chest pain, palpitations, orthopnea, paroxysmal nocturnal dyspnea, edema, light headedness, other - Medications/Allergies Allergies/Adverse Reactions: Allergies Allergy/AdvReac Type Severity Reaction Status Date / Time aspirin Allergy Verified 07/17/17 00:39 barium iodide Allergy Verified 07/17/17 17:14 propoxyphene [From Darvon] Allergy Verified 07/17/17 00:39 Medications: Current Medications Acetaminophen (Tylenol) 650 mg PO Q4H PRN PRN Reason: Headache/Fever or Pain Last Admin: 07/23/17 04:42 Dose: 650 mg Amlodipine Besylate (Norvasc) 5 mg PO DAILY [facility] Last Admin: 07/24/17 08:43 Dose: 5 mg Apixaban (Eliquis) 5 mg PO BID [facility] Bisacodyl (Dulcolax) 10 mg [place] Q24H PRN PRN Reason: Constipation Calcium Carbonate (Tums) 1,000 mg PO Q4H PRN PRN Reason: Heartburn or Indigestion Last Admin: 07/20/17 06:37 Dose: 1,000 mg Carvedilol (Coreg) 6.25 mg PO BID [facility] Last Admin: 07/24/17 08:43 Dose: 6.25 mg Docusate Sodium (Colace) 100 mg PO BID [facility] Last Admin: 07/24/17 08:43 Dose: 100 mg Famotidine (Pepcid) 20 mg PO DAILY [facility] Last Admin: 07/24/17 08:43 Dose: 20 mg Furosemide (Lasix) 40 mg PO DAILY-AC [facility] Last Admin: 07/24/17 08:43 Dose: 40 mg Ceftriaxone Sodium 1 gm/ (Sodium Chloride) 100 mls @ 200 mls/hr IVPB Q24HR [facility] Last Admin: 07/24/17 12:20 Dose: 100 mls Lisinopril (Zestril) 10 mg PO BID [facility] Last Admin: 07/24/17 08:43 Dose: 10 mg Magnesium Chloride (Slow-Mag) 64 mg PO BID [facility] Last Admin: 07/24/17 08:44 Dose: 64 mg Magnesium Hydroxide (Milk Of Magnesium) 30 ml PO DAILYPRN PRN PRN Reason: Constipation Melatonin (Melatonin) 3 mg PO HS PRN PRN Reason: Insomnia Last Admin: 07/22/17 20:57 Dose: 3 mg Nitroglycerin (Nitrostat) 0.4 mg PO Q5MIN PRN PRN Reason: Chest Pain Last Admin: 07/20/17 21:15 Dose: 0.4 mg Senna (Senokot) 2 tab PO HSPRN PRN PRN Reason: Constipation Sodium Chloride (Flush - Normal Saline) 10 ml IVF PRN PRN PRN Reason: Saline Flush Last Admin: 07/22/17 20:40 Dose: 10 ml
[2017-07-24] MEDS: Apixaban 5 MG TAB PO SCH (21:38)
[2017-07-25 06:28] LABS: Hemoglobin 11.3 g/dL (12.0-16.0); Platelet Count 310 thou/uL (130-400)
[2017-07-25 06:38] LABS: Anion Gap 10 mmol/L (10-20); BUN (Urea Nitrogen) 31 mg/dL (9.8-20.1); Calc. Creatinine Clearance 52 mL/min (70-130); Calcium 8.5 mg/dL (7.8-10.44); Carbon Dioxide 24 mmol/L (23-31); Chloride 101 mmol/L (98-107); Estimated GFR-MDRD 59; Glucose 103 mg/dL (83-110); Magnesium 2.3 mg/dL (1.6-2.6); Phosphorus 3.4 mg/dL (2.3-4.7); Potassium 4.2 mmol/L (3.5-5.1); Sodium 131 mmol/L (136-145)
[2017-07-25] MEDS: Famotidine 20 MG TAB PO SCH (08:34)
[2017-07-25] MEDS: Amlodipine 5 MG TAB PO SCH (08:34)
[2017-07-25] MEDS: Carvedilol 6.25 MG TAB PO SCH ×2 (08:34→20:08)
[2017-07-25] MEDS: Magnesium Chloride 64 MG TAB PO SCH ×2 (08:35→20:08)
[2017-07-25] MEDS: Lisinopril 10 MG TAB PO SCH ×2 (08:35→20:08)
[2017-07-25] MEDS: Apixaban 5 MG TAB PO SCH (08:35)
[2017-07-25] MEDS: Furosemide 40 MG TAB PO SCH (08:35)
[2017-07-25] MEDS: Docusate 100 MG CAP PO SCH ×2 (08:35→20:08)
[2017-07-25] MEDS: Furosemide 20 MG TAB PO SCH (09:53)
--- NOTE | 2017-07-25 10:06 | PDOC.CTH ---
Cardiology Progress Note - Objective Vital Signs Temp Pulse Resp BP Pulse Ox 07/25/17 08:34 98 07/25/17 08:00 99.1 F 98 16 158/95 H 96 07/25/17 03:44 99.4 F 98 24 H 169/88 H 96 07/24/17 23:39 99.3 F 73 16 139/76 96 Admit Weight 189 lb 3.2 oz Weight 162 lb 1.6 oz 07/24/17 07/25/17 07/26/17 06:59 06:59 06:59 Intake Total 995 1595 Output Total 350 Balance 995 1595 -350 - Physical Examination General/Neuro: other: (Seems better today. But with further questioning usualy say " I don't know".) Lungs: CTA Heart: other: (irreg.) Abdomen: no HSM, NT/ND Extremities: other: (no edema.) - Telemetry Telemetry Rhythm: A-fib. - Labs Result Diagrams: 07/25/17 06:02 07/25/17 06:02 Troponin/CKMB CK-MB (CK-2) 1.1 ng/mL (0-6.6) 07/23/17 08:44 Troponin I Less than 0.010 ng/mL (< 0.028) 07/23/17 08:44 - Assessment/Plan 1. Acute on chronic diastolic HF - Stable with Lasix 40mg PO daily. On BBlocker, ANY, and Lasix. 2. Afib with RVR - Hx of Bradycardia with HR down to 33 on 07/18/17. Stable HR with Afib With HR 70-80s since 07/19/17. Stress test on 07/21/17 showed normal. ASA started after small CVA. Started on eliquis last PM and had hematuria and epistaxis.Eliquis stopped. Resume ASA and continue watching for bleeding. 3. CVA, possible related to A-fib. 4. Mod - stable; cont. to monitor 5. CKD stage 3 - stable; cont. to monitor 6. anemia - stable; Cont. to monitor 7. Hyponatremia - improving; 8. Obese - 9. Acute Bleeding - stable; Hgb has been stable. S/p Pelvic and renal U/S on showed normal. She underwent transvaginal exam, unable to do biopsy. 10. HTN improved. MAR reviewed. Will discuss with EP if pt. may be a candidate for the Lariat procedure.
[2017-07-25] MEDS: cefTRIAXone\\ROCEPHIN 1 GM in Sodium Chloride 0.9% 100 ML IVPB SCH (13:43)
--- NOTE | 2017-07-25 16:51 | PDOC.PN ---
- Subjective Encounter Start Date: 07/25/17 Encounter Start Time: 10:00 Patient seen and examined for Acute CVA/Afib. No new complaints. Overnight events noted. Developed Epistaxis - Objective Resuscitation Status: Resuscitation Status FULL:Full Resuscitation MAR Reviewed: Yes Vital Signs & Weight: Vital Signs (12 hours) Temp Pulse Pulse Pulse Resp BP BP 07/25/17 16:00 98.8 F 77 18 07/25/17 15:05 90 84 158/100 H 167/88 H 07/25/17 10:00 97.6 F 72 20 07/25/17 08:34 98 07/25/17 08:00 99.1 F 98 16 BP Pulse Ox 07/25/17 16:00 167/88 H 94 L 07/25/17 15:05 07/25/17 10:00 139/65 96 07/25/17 08:34 07/25/17 08:00 158/95 H 96 Weight Admit Weight 189 lb 3.2 oz Weight 162 lb 1.6 oz I&O: 07/24/17 07/25/17 07/26/17 06:59 06:59 06:59 Intake Total 995 1595 500 Output Total 350 Balance 995 1595 150 Result Diagrams: 07/25/17 06:02 07/25/17 06:02 EKG Reviewed by me: Yes (Tele Afib) Phys Exam - Physical Examination Constitutional: NAD Respiratory: no wheezing, no rhonchi Scat rales at bases Cardiovascular: no rub, irregular Gastrointestinal: soft, non-tender, positive bowel sounds Musculoskeletal: no edema Neurological: non-focal, moves all 4 limbs Psychiatric: A&O x 3 Dx/Plan (1) Acute CVA (cerebrovascular accident) Code(s): I63.9 - CEREBRAL INFARCTION, UNSPECIFIED Status: Acute Comment: suspected due to Afib (2) Acute diastolic CHF (congestive heart failure) Code(s): I50.31 - ACUTE DIASTOLIC (CONGESTIVE) HEART FAILURE Status: Acute Comment: diuresing well (3) Atrial fibrillation with rapid ventricular response Code(s): I48.91 - UNSPECIFIED ATRIAL FIBRILLATION Status: Acute Comment: Rate controlled on Coreg (4) Hypertensive urgency Code(s): I16.0 - HYPERTENSIVE URGENCY Status: Acute Comment: On Lisinopril, Coreg and Amlodipine (5) UTI (urinary tract infection) Status: Acute Comment: on Ceftriaxone - Mixed culture (6) CKD (chronic kidney disease), stage III Code(s): N18.3 - CHRONIC KIDNEY DISEASE, STAGE 3 (MODERATE) Status: Chronic (7) Swallowing dysfunction Code(s): R13.10 - DYSPHAGIA, UNSPECIFIED Status: Acute Comment: on modified diet (8) Vagina bleeding Code(s): N93.9 - ABNORMAL UTERINE AND VAGINAL BLEEDING, UNSPECIFIED Status: Resolved - Plan DVT proph w/SCDs Eliquis dced due to bleeding overnight, Start low dose ASA per Cardiology -: EP consulted, Cardio following -: DC Ceftriaxone -: Cont current meds as below -: Reduce Lasix to 20 mg daily due to poor appetite. Review of Systems - Review of Systems Respiratory: negative: Cough, Dry, Shortness of Breath, Hemoptysis, SOB with Excertion, Pleuritic Pain, Sputum, Wheezing Cardiovascular: negative: chest pain, palpitations, orthopnea, paroxysmal nocturnal dyspnea, edema, light headedness, other - Medications/Allergies Allergies/Adverse Reactions: Allergies Allergy/AdvReac Type Severity Reaction Status Date / Time aspirin Allergy Verified 07/17/17 00:39 barium iodide Allergy Verified 07/17/17 17:14 propoxyphene [From Darvon] Allergy Verified 07/17/17 00:39 Medications: Current Medications Acetaminophen (Tylenol) 650 mg PO Q4H PRN PRN Reason: Headache/Fever or Pain Last Admin: 07/23/17 04:42 Dose: 650 mg Amlodipine Besylate (Norvasc) 5 mg PO DAILY [facility] Last Admin: 07/25/17 08:34 Dose: 5 mg Aspirin (Ecotrin) 81 mg PO DAILY [facility] Bisacodyl (Dulcolax) 10 mg [place] Q24H PRN PRN Reason: Constipation Calcium Carbonate (Tums) 1,000 mg PO Q4H PRN PRN Reason: Heartburn or Indigestion Last Admin: 07/20/17 06:37 Dose: 1,000 mg Carvedilol (Coreg) 6.25 mg PO BID [facility] Last Admin: 07/25/17 08:34 Dose: 6.25 mg Docusate Sodium (Colace) 100 mg PO BID [facility] Last Admin: 07/25/17 08:35 Dose: 100 mg Famotidine (Pepcid) 20 mg PO DAILY [facility] Last Admin: 07/25/17 08:34 Dose: 20 mg Furosemide (Lasix) 20 mg PO DAILY [facility] Last Admin: 07/25/17 09:53 Dose: Not Given Ceftriaxone Sodium 1 gm/ (Sodium Chloride) 100 mls @ 200 mls/hr IVPB Q24HR [facility] Last Admin: 07/25/17 13:43 Dose: 100 mls Lisinopril (Zestril) 10 mg PO BID [facility] Last Admin: 07/25/17 08:35 Dose: 10 mg Magnesium Chloride (Slow-Mag) 64 mg PO BID [facility] Last Admin: 07/25/17 08:35 Dose: 64 mg Magnesium Hydroxide (Milk Of Magnesium) 30 ml PO DAILYPRN PRN PRN Reason: Constipation Melatonin (Melatonin) 3 mg PO HS PRN PRN Reason: Insomnia Last Admin: 07/22/17 20:57 Dose: 3 mg Nitroglycerin (Nitrostat) 0.4 mg PO Q5MIN PRN PRN Reason: Chest Pain Last Admin: 07/20/17 21:15 Dose: 0.4 mg Senna (Senokot) 2 tab PO HSPRN PRN PRN Reason: Constipation Sodium Chloride (Flush - Normal Saline) 10 ml IVF PRN PRN PRN Reason: Saline Flush Last Admin: 07/22/17 20:40 Dose: 10 ml
--- NOTE | 2017-07-25 22:47 | CON ---
ELECTROPHYSIOLOGY CONSULTATION DATE OF CONSULTATION: 07/25/2017 REFERRING PHYSICIAN: Kinsey Reina MD REASON FOR CONSULTATION: Intolerance of blood thinners, atrial fibrillation. Ms. Mariee is an 86-year-old female who presented to the emergency room with heart failure symptoms, severe swelling in the legs, extreme shortness of breath and palpitations. She is fairly unremarkab le past medical history, although has not had regular medical screening and care since the . Sh donavon denies any prior episodes of this. When she presented to the emergency room, she was found to be i n atrial fibrillation and this is a new diagnosis to her. I have been said she did have rheumatic fe gregoria as a child and has had palpitations occasionally throughout her entire life since that time. Her shortness of breath and palpitations have been progressive over the past 2-3 weeks. She also indica saad that she was having diarrhea and flu-like symptoms in addition to her weakness and swelling of he r legs. Her family at bedside and helped significantly with the evaluation as the patient has suffer ed a subacute stroke 2 days ago and is experiencing significant expressive aphasia. During this hospitalization in regard to her atrial fibrillation, she had initially been started on L ovenox for stroke prophylaxis, but developed vaginal bleeding. She underwent an intravaginal ultraso und and attempted biopsy; however, they were unable to obtain a biopsy sample at that time. She then suffered her subacute stroke which occurred in the frontal lobe. Neurology was consulted and after that Eliquis 5 mg b.i.d. was initiated for stroke prophylaxis. The patient began to have hematuria a nd also bloody nose shortly thereafter. Family also reports that she has a remote history of GI blee d from when she was taking aspirin and [id number] pain medications on a daily basis, but that s he has not had any recurrent GI bleed or issues since that time. PAST MEDICAL HISTORY: 1. Rheumatic fever. 2. Intermittent palpitations. 3. Gastrointestinal bleed on aspirin and OTC pain medications. 4. Degenerative joint disease. 5. Cholecystectomy. 6. D and C. 7. Frontal lobe stroke on 07/23/2017. SOCIAL HISTORY: She is a and lives alone independently. Negative for tobacco, alcohol, or lenora g use. FAMILY HISTORY: Positive for gastric cancer. Negative for sudden cardiac and coronary artery disease of early onset. HOME MEDICATIONS: Advil as needed. REVIEW OF SYSTEMS: Difficult to obtain given her expressive aphasia. Positive for weakness and fati radha. PHYSICAL EXAMINATION: VITAL SIGNS: Most recent vital signs 97.6, pulse 72, respirations are 20, oxygen saturation is 96% o n room air. GENERAL: This is an overweight elderly woman in no apparent distress. She is alert. She is experie ncing significant expressive aphasia. She is normocephalic. NECK: Supple without jugular venous distention. LUNGS: Clear to auscultation bilaterally without wheezes, crackles, or rhonchi. HEART: Rate is irregularly irregular with controlled ventricular rate. ABDOMEN: Obese, soft, and nontender without hepatosplenomegaly. Positive bowel sounds are noted thr oughout. EXTREMITIES: Warm and dry to touch without clubbing, cyanosis, or edema. NEUROLOGICAL: Does reveal expressive aphasia, given secondary to her recent stroke. MUSCULOSKELETAL: Gait was not assessed. DATABASE: Telemetry and EKG reviewed reveal persistent atrial fibrillation with variable ventricular response. Currently, rates are controlled between 70 and 80 beats per minute. EKG on admission rev ealed a prolonged QTc of 511 milliseconds. LABORATORY AND DIAGNOSTIC DATA: Recent laboratory, hemoglobin 11.3 and hematocrit 35.8 (stable witho ut significant drop despite multiple bleeding issues), platelet count is 310,000. INR is 1.2. Sodiu m 131, potassium 4.2, chloride 101, carbon dioxide 24, BUN is 31, creatinine is 0.91, GFR 59. Magnes ium is 1.9. Echocardiogram on 07/17/2017, ejection fraction 50-55% with probable diastolic dysfuncti on. There is a restrictive ventricular filling pattern. Left atrium is moderately dilated. Moderat e-to-severe TR. Stress test on 07/20/2017, no evidence to suggest reversible myocardial ischemia, LV EF estimated at 43%. A renal ultrasound on 07/21/2017, no hydronephrosis. Right renal cyst. Left p eripelvic cyst. Brain MRI/MRA on 07/23/2017, small subacute subcortical left frontal lobe infarct. ASSESSMENT AND PLAN: 1. Newly found atrial fibrillation with controlled ventricular rate, one episode of bradycardia with ventricular rate as low as 33 beats per minute. 2. Subacute cerebrovascular accident, now with expressive aphasia. 3. History of rheumatic fever as a child. 4. History of GI bleed while on aspirin. 5. Hematuria and epistaxis, on Eliquis. 6. Abnormal vaginal bleeding, on Lovenox. 7. Mild anemia, but largely stable hemoglobin and hematocrit. PLAN: A long discussion was had with Ms. Mariee and her family. Given her intolerance to multiple anticoagulation agents, this presents obvious challenges given her persistent atrial fibrillation and her risk for stroke. Unfortunately, she has already suffered one subacute embolic event, and is cer tainly at risk for repeat episode. We discussed various left atrial appendage closure methods and justin beckford. It is possible per her to have Lariat left atrial appendage closure in the future; however, given her recent stroke is unwise to immediately proceed with this in the form of treatment. This i s a fairly invasive procedure and although has a much lower need for anticoagulation afterwards. Ms. Mariee is just not stable enough to undergo this procedure at this time. Family voices understandi ng and agrees, but now is not the opportune time for Ms. Mariee undergo fairly invasive procedure. We will see her back in clinic in 4-6 weeks after her discharge to once again address possible left a trial appendage closure and see if the patient is more stable and better candidate to undergo the pro cedure at that time. We do recommend continuing aspirin as long as it is tolerated. Thank you for allowing us to participate in the care of this patient. This is Petrona Gramajo, nurse practitioner dictating as scribe for Dr. Albert Chin.
[2017-07-26 05:22] LABS: Hemoglobin 11.5 g/dL (12.0-16.0); Platelet Count 300 thou/uL (130-400)
[2017-07-26 05:32] LABS: Anion Gap 12 mmol/L (10-20); BUN (Urea Nitrogen) 32 mg/dL (9.8-20.1); Calc. Creatinine Clearance 46 mL/min (70-130); Calcium 8.6 mg/dL (7.8-10.44); Carbon Dioxide 24 mmol/L (23-31); Chloride 100 mmol/L (98-107); Estimated GFR-MDRD 53; Glucose 92 mg/dL (83-110); Magnesium 2.3 mg/dL (1.6-2.6); Potassium 3.9 mmol/L (3.5-5.1); Sodium 132 mmol/L (136-145)
[2017-07-26] MEDS: Furosemide 20 MG TAB PO SCH (08:30)
[2017-07-26] MEDS: Amlodipine 5 MG TAB PO SCH (08:30)
[2017-07-26] MEDS: Famotidine 20 MG TAB PO SCH (08:30)
[2017-07-26] MEDS: Lisinopril 10 MG TAB PO SCH (08:31)
[2017-07-26] MEDS: Carvedilol 6.25 MG TAB PO SCH (08:31)
[2017-07-26] MEDS: Docusate 100 MG CAP PO SCH (08:31)
[2017-07-26] MEDS ORDERED: Aspirin 81 mg Enteric Coated Tablet PO SCH (09:00)
[2017-07-26] MEDS: Magnesium Chloride 64 MG TAB PO SCH (09:20)
--- NOTE | 2017-07-26 11:33 | PDOC.CTH ---
Cardiology Progress Note - Subjective The pt seen and examined. No overnight events. No cardiac complaints. per RN , there was no evidence of bleeding in her diaper over last night. However, there was bloody urine in her bedside commode. However, nobody knew how long ago she voided. - Objective Vital Signs Temp Pulse Resp BP BP BP Pulse Ox 07/26/17 08:31 163/69 H 07/26/17 08:30 80 163/69 H 07/26/17 08:00 98.3 F 80 12 07/26/17 07:43 98.3 F 80 12 163/69 H 95 07/26/17 04:00 98.0 F 68 18 142/81 H 96 07/25/17 23:42 98.2 F 73 20 136/90 96 Admit Weight 189 lb 3.2 oz Weight 158 lb 8 oz 07/25/17 07/26/17 07/27/17 06:59 06:59 06:59 Intake Total 1595 1860 Output Total 350 Balance 1595 1510 - Physical Examination Lungs: CTA Heart: other: (irregular) Abdomen: soft Extremities: other: (No edema) - Telemetry Telemetry Rhythm: afib with HR 60-70s - Labs Result Diagrams: 07/26/17 05:04 07/26/17 05:04 Troponin/CKMB CK-MB (CK-2) 1.1 ng/mL (0-6.6) 07/23/17 08:44 Troponin I Less than 0.010 ng/mL (< 0.028) 07/23/17 08:44 - Assessment/Plan 1. Acute on chronic diastolic HF - Stable with Lasix 20mg PO daily, BBlocker, and ANY. 2. Afib with RVR - Hx of Bradycardia with HR down to 33 on 07/18/17. Stable HR with Afib With HR 70-80s since 07/19/17. Stress test on 07/21/17 showed normal. ASA started after small CVA. Started on eliquis last PM and had hematuria and epistaxis. Eliquis stopped. stable with ASA 81mg; Continue watching for bleeding. 3. Subacute CVA in frontal lobe possible related to A-fib - managed by neurologist; 4. Mod - stable; cont. to monitor 5. CKD stage 3 - stable; cont. to monitor 6. anemia - stable; Cont. to monitor 7. Hyponatremia - improving; 8. Obese - 9. Acute Bleeding - stable; Hgb has been stable. S/p Pelvic and renal U/S on showed normal. She underwent transvaginal exam, unable to do biopsy. 10. HTN - cont. to monitor. MAR reviewed. Will discuss with EP if pt. may be a candidate for the Lariat MARIA GUADALUPE procedure. The pt will f/u with EP clinic within 4-6 wks Review of Systems - Review of Systems Constitutional: reports: no symptoms reported EENTM: reports: no symptoms reported Respiratory: reports: no symptoms reported Cardiac (ROS): reports: no symptoms reported ABD/GI: reports: no symptoms reported : reports: no symptoms reported Musculoskeletal: reports: no symptoms reported Skin: reports: no symptoms reported
[2017-07-26] MEDS ORDERED: Lisinopril 10 MG TAB PO SCH (15:00)
[2017-07-26 15:26] VITALS: BP 118/68
[2017-07-26 16:25] VITALS: TEMP 97.5
--- NOTE | 2017-07-27 10:22 | DIS ---
DATE OF ADMISSION: 07/16/2017 DATE OF DISCHARGE: 07/27/2017 DISCHARGE DISPOSITION: To inpatient rehabilitation. ALLERGIES: Patient is allergic to PROPOXYPHENE and IODINE. Patient was seen and examined on the day of discharge. Denies any new complaints, no chest pain, paul rtness of breath, palpitations. DISCHARGE MEDICATIONS: Amlodipine 5 mg daily, aspirin 81 mg daily, carvedilol 6.25 mg twice a day, C olace 100 mg twice a day, Pepcid 20 mg daily, Lasix 20 mg daily as needed for edema, hydralazine 10 m g twice a day, lisinopril 10 mg twice a day, Slow-Mag 64 mg b.i.d. Base met after 1 week is recommended. Primary care physician advised to follow. Pelvic ultrasound a fter 4 weeks. Primary care physician advised to follow. FOLLOWUP: 1. Follow up with [facility] after 1 week. 2. Follow up with cardiology, Dr. Reina after 1 week. 3. Follow up with electrophysiology, Dr. Chin in 1-2 weeks. 4. Follow up with [facility] in 1-2 weeks. BRIEF HOSPITAL COURSE: Patient is an 86-year-old female with hypertension, rheumatic fever as a chil d presented to the emergency room with shortness of breath, and palpitations on 07/17/2017. Please n ote that patient has not seen a physician for many years. She was currently on no medications at [facility]. Her workup was consistent with acute congestive heart failure exacerbation along with atrial fibr illation with rapid ventricular response. She was also found to be in hypertensive urgency with bloo d pressure in diastolic 112. Please refer to the history and physical for further details. The patient was admitted to the hospital with the above diagnosis. Echocardiogram showed normal ejec tion fraction of 50%-55% with moderate dilatation of the left atrium, moderate enlargement of the rig ht atrium, vvnvplyl-cd-[id number] mitral regurgitation, and [id number] aortic stenosis with moderat e-to-severe tricuspid regurgitation. She showed good improvement with diuretics. She was also place d on Cardizem drip for atrial fibrillation. Her weight on admission was 189 pounds. At discharge, er weight is 158 pounds. She was started on anticoagulation with Lovenox for atrial fibrillation. Bridgette tanvi was seen by Cardiology, Dr. Reina. A Cardiolite stress test was negative for reversible ischem ia. Ejection fraction on the stress test was 43%. While on anticoagulation, patient developed vaginal bleeding. Patient was evaluated by [employer], Dr. Garcia ett. Pelvic ultrasound was done that was essentially unremarkable. Dr. Banegas attempted endometria l biopsy without much success due to cervical stenosis. Patient was advised to follow up with [facility] [place] for a repeat pelvic ultrasound. A 24 hours after discontinuation of Lovenox f or vaginal bleeding, patient had a code green and was found to have small acute subcortical left fron irena lobe infarction. Patient was seen by neurology, Dr. Vega. MRA of the head and neck did not show significant stenosis. Patient was started on aspirin. Since the bleeding had resolved, patient was started on Eliquis per neurology recommendation. Next day, patient developed epistaxis as well as g ross hematuria. Anticoagulation has been completely discontinued for this reason. Patient was evalu ated by Dr. Chin for possible LARIAT procedure. Patient will follow up with Electrophysiology and Ca rdiology as outpatient for further management of atrial fibrillation. She will be discharged to [facility] rehabilitation. Plan of care was discussed with the patient and the family in detail. They st ated understanding. Total time coordinating the discharge of this patient was 40 minutes. FINAL DIAGNOSES: 1. Acute diastolic heart failure exacerbation. 2. Atrial fibrillation with rapid ventricular response, rate controlled. Patient also had a brief s inus pause on carvedilol. For this reason, carvedilol dose was not increased more than 6.25 mg 3. Hypertensive urgency on admission, improved. 4. Acute cerebrovascular accident while off anticoagulation. 5. Swallow dysfunction, currently on modified diet. 6. Expressive aphasia secondary to stroke. 7. Vaginal bleeding/gross hematuria/epistaxis while on anticoagulation. For this reason, anticoagul ation has been discontinued. 8. Chronic kidney disease, stage 3. 9. Escherichia coli urinary tract infection. Urine culture showed greater than 100,000 mixed skin a nd enteric frances. Please note that patient has completed antibiotics. 10. History of rheumatic fever as a child. 11. Moderate aortic stenosis. Plan of care was discussed with the patient and the family in detail. They stated understanding.
== END 2017-07-26 17:42 | DRG 291 ==
LOC: ERS 19:07 → 2SE 21:20
PROVIDERS: ADMIT Internal Medicine; ATTEND Internal Medicine
DX: I13.0 Hypertensive heart and chronic kidney disease with heart failure and stage 1 through stage 4 chronic kidney disease, or unspecified chronic kidney disease (principal); I63.8 Other cerebral infarction; I50.33 Acute on chronic diastolic (congestive) heart failure; E87.1 Hypo-osmolality and hyponatremia; D68.32 Hemorrhagic disorder due to extrinsic circulating anticoagulants; G81.94 Hemiplegia, unspecified affecting left nondominant side; N39.0 Urinary tract infection, site not specified; R47.01 Aphasia; E44.1 Mild protein-calorie malnutrition; I09.81 Rheumatic heart failure; I48.91 Unspecified atrial fibrillation; R31.9 Hematuria, unspecified; R04.0 Epistaxis; D63.1 Anemia in chronic kidney disease; E66.9 Obesity, unspecified; T45.515A Adverse effect of anticoagulants, initial encounter; I08.3 Combined rheumatic disorders of mitral, aortic and tricuspid valves; I16.0 Hypertensive urgency; N18.3 Chronic kidney disease, stage 3 (moderate); R13.10 Dysphagia, unspecified; N93.9 Abnormal uterine and vaginal bleeding, unspecified; E87.6 Hypokalemia; M19.90 Unspecified osteoarthritis, unspecified site; Z68.32 Body mass index [BMI] 32.0-32.9, adult; N95.0 Postmenopausal bleeding; N88.2 Stricture and stenosis of cervix uteri; B96.20 Unspecified Escherichia coli [E. coli] as the cause of diseases classified elsewhere
CPT/HCPCS: 36415; 70450; 70544; 70547; 70551; 71045; 76770; 76856; 78452; 80048; 80053; 80061; 80069; 81001; 82550; 82553; 83735; 83880; 84100; 84484; 85007; 85014; 85018; 85025; 85027; 85049; 85610; 85730; 87086; 93005; 93010; 93017; 93306; 93798; 94760; 96365; 96372; 96375; A4216; A9500; G8978-GP-CL; G8979-GP-CJ; G8987-GO-CL; G8988-GO-CJ; G8996-GN-CK; G8997-GN-CJ; J0153; J0360; J0696; J1644; J1650; J1940; J7050; Q0162